=== PATIENT | male | born 1935 | race Caucasian/White ===

== ENCOUNTER 2016-12-09 12:23 | Emergency (ER) | payer OTHER ==
[2016-12-09 12:54] VITALS: BP 125/51
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
== END 2016-12-09 14:05 | disposition home or self-care (01) ==
LOC: KA.ED 12:23
DX: S00.83XA Contusion of other part of head, initial encounter (principal); I10 Essential (primary) hypertension; I25.810 Atherosclerosis of coronary artery bypass graft(s) without angina pectoris; K21.9 Gastro-esophageal reflux disease without esophagitis; Z79.899 Other long term (current) drug therapy; Z95.1 Presence of aortocoronary bypass graft; Z90.49 Acquired absence of other specified parts of digestive tract; V49.9XXA Car occupant (driver) (passenger) injured in unspecified traffic accident, initial encounter
CPT/HCPCS: 70450; 99284

== ENCOUNTER 2019-01-11 11:36 | Emergency (ER) | payer MEDICARE, OTHER ==
[2019-01-11] MEDS ORDERED: Sodium Chloride 0.9% 1,000 ML IV ONE ×2 (11:50→13:31)
[2019-01-11 12:23] LABS: ANION GAP 18.3 mmol/L (5-15)
--- NOTE | 2019-01-11 12:29 | EDM.PDOC ---
ED HPI GENERAL MEDICAL PROBLEM - General Chief Complaint: Gastrointestinal Problem Time Seen by Provider: 01/11/19 12:00 Source of Information: Reports: Patient, Family (daughter) History Limitations: Reports: No Limitations - History of Present Illness INITIAL COMMENTS - FREE TEXT/NARRATIVE: Patient brought via ambulance from [facility] living with diarrhea, weakness and dehydration. He and his daughter tell me that two days ago he started abruptly with severe diarrhea. He says 10-11 times that day with dark stools. Yesterday the diarrhea was only about 3 times and color was more normal brown but he had bad pain in low abdomen. Today he has had diarrhea twice so far, brown; the abdominal pain is gone. He denies vomiting and has been eating close to normal (just a little less) all through this. He doesn't drink much water but has been drinking gatorade with this. He is on coumadin for A Fib and valve replacement 3 years ago. He also had CABG 20+ years ago and had a stent in between. He also has stage 3 CKD. abdominal general Pain Score (Numeric/FACES): 4 - Related Data Allergies Allergy/AdvReac Type Severity Reaction Status Date / Time No Known Allergies Allergy Verified 01/11/19 12:05 Home Meds: Home Meds Carvedilol 6.25 mg PO BID 12/23/14 [History] Finasteride 5 mg PO DAILY 12/23/14 [History] Pramipexole [Mirapex] 0.5 tab PO BEDTIME 12/23/14 [History] Calcium Citrate/Vitamin D2 [Kilo-Citrate Plus Vitamin D Tab] 1 each PO BID [History] Clopidogrel [Plavix] 75 mg PO DAILY 12/09/16 [History] Furosemide 40 mg PO DAILY 12/09/16 [History] Losartan [Cozaar] 50 mg PO DAILY 12/09/16 [History] Melatonin 5 mg PO BEDTIME PRN 12/09/16 [History] Nitroglycerin [IJP: Nitroglycerin] 0.4 mg SL PRN 12/09/16 [History] Pantoprazole Sodium 40 mg PO DAILY 12/09/16 [History] dilTIAZem HCl [Diltiazem 24Hr Cd] 120 mg PO DAILY 12/09/16 [History] Acetaminophen [Tylenol] 650 mg PO Q6H PRN 01/11/19 [History] Docusate Sodium [Colace] 100 mg PO DAILY PRN 01/11/19 [History] Pramipexole [Mirapex] 0.25 mg PO 1200 01/11/19 [History] Tamsulosin [Tamsulosin 24 Hr] 0.4 mg PO BEDTIME 01/11/19 [History] Warfarin [Coumadin] 5 mg PO DAILY 01/11/19 [History] atorvaSTATin Calcium [Atorvastatin Calcium] 40 mg PO BEDTIME 01/11/19 [History] Past Medical History HEENT History: Reports: Head, Impaired Vision Cardiovascular History: Reports: Bypass, CAD, Heart Valve Replacement, Hypertension, Stents Respiratory History: Reports: Sleep Apnea Gastrointestinal History: Reports: Chronic Constipation, GERD - Past Surgical History Cardiovascular Surgical History: Reports: Carotid Stents, Coronary Artery Bypass , Valve Replacement Social & Family History - Family History Family Medical History: Noncontributory - Caffeine Use Caffeine Use: Reports: Coffee, Soda ED ROS GENERAL - Review of Systems Review Of Systems: See Below Constitutional: Reports: Weakness, Decreased Appetite (a little). Denies: Fever , Chills HEENT: Denies: Ear Pain, Throat Pain, Vision Change Respiratory: Denies: Shortness of Breath, Cough Cardiovascular: Denies: Chest Pain, Lightheadedness, Syncope GI/Abdominal: Reports: Diarrhea. Denies: Abdominal Pain, Bloody Stool, Constipation, Nausea, Vomiting : Reports: Frequency (usually is quite frequent due to his water pill but much reduced since diarrhea started). Denies: Dysuria, Flank Pain Musculoskeletal: Denies: Neck Pain, Shoulder Pain, Arm Pain, Back Pain, Hand Pain, Leg Pain Skin: Denies: Cyanosis, Jaundice, Mottled, Pallor, Diaphoresis Neurological: Denies: Confusion, Dizziness, Headache, Seizure, Syncope Psychiatric: Denies: Agitation, Anxiety, Confusion Hematologic/Lymphatic: Denies: Anemia ED EXAM, GI/ABD - Physical Exam Exam: See Below Exam Limited By: No Limitations General Appearance: Alert, WD/WN, No Apparent Distress Eyes: Bilateral: Normal Appearance, EOMI Ears: Normal External Exam, Hearing Grossly Normal Nose: Normal Inspection, No Blood Throat/Mouth: Normal Inspection, Normal Lips, Normal Voice, No Airway Compromise Head: Atraumatic, Normocephalic Neck: Normal Inspection, Supple, Non-Tender, Full Range of Motion Respiratory/Chest: No Respiratory Distress, Lungs Clear, Normal Breath Sounds, No Accessory Muscle Use Cardiovascular: Normal Peripheral Pulses, Regular Rate, Rhythm, No Murmur GI/Abdominal Exam: Soft, Non-Tender (was yesterday but good now), No Organomegaly, No Distention, No Abnormal Bruit, No Mass, Abnormal Bowel Sounds ( increased) Rectal (Males) Exam: Heme - Stool (from defecation) Back Exam: Normal Inspection, Full Range of Motion. No: CVA Tenderness (L), CVA Tenderness (R) Extremities: Normal Inspection, Normal Range of Motion, Pedal Edema (none present now but wearing TEDS) Neurological: Alert, Oriented, Normal Cognition, No Motor/Sensory Deficits Psychiatric: Normal Affect, Normal Mood Skin Exam: Warm, Dry, Intact, Normal Color, No Rash Course - Vital Signs Last Recorded V/S: Last Vital Signs Temp 97.5 F 01/11/19 11:51 Pulse 62 01/11/19 12:36 Resp 19 01/11/19 12:36 BP 128/43 L 01/11/19 12:36 Pulse Ox 97 01/11/19 12:36 - Orders/Labs/Meds Labs: Laboratory Tests 01/11/19 01/11/19 01/11/19 Range/Units 11:55 11:55 11:55 WBC 5.88 (5.00-10.00) 10^3/uL RBC 4.40 L (4.50-6.00) 10^6/uL Hgb 13.4 (13.0-17.0) g/dL Hct 39.0 L (40.0-52.0) % MCV 88.6 (82.0-92.0) fL MCH 30.5 (27.0-31.0) pg MCHC 34.4 (32.0-36.0) g/dL RDW 14.4 (11.5-14.5) % Plt Count 162 (150-400) 10^3/uL MPV 11.4 H (7.4-10.4) fL Immature Gran % (Auto) 0.2 (0.0-5.0) % Neut % (Auto) 70.7 H (50.0-70.0) % Lymph % (Auto) 14.1 L (20.0-40.0) % [place] % (Auto) 14.6 H (2.0-8.0) % Eos % (Auto) 0.2 L (1.0-3.0) % Baso % (Auto) 0.2 (0.0-1.0) % Immature Gran # (Auto) 0.01 (0.00-0.50) 10^3/uL Neut # (Auto) 4.16 (2.50-7.00) 10^3/uL Lymph # (Auto) 0.83 L (1.00-4.00) 10^3/uL [place] # (Auto) 0.86 H (0.10-0.80) 10^3/uL Eos # (Auto) 0.01 L (0.10-0.30) 10^3/uL Baso # (Auto) 0.01 (0.00-0.10) 10^3/uL PT 24.1 H (8.9-11.4) SEC INR 2.4 H (0.9-1.1) Sodium 139 (136-145) mmol/L Potassium 3.0 L (3.3-5.3) mmol/L Chloride 102 (98-115) mmol/L Carbon Dioxide 21.7 (21.0-32.0) mmol/L Anion Gap 18.3 H (5-15) mmol/L BUN 65 H* (6-25) mg/dL Creatinine 2.08 H (0.51-1.17) mg/dL Est Cr Clr Drug Dosing 31.62 mL/min Estimated GFR (MDRD) 31 mL/min Glucose 107 H (75 - 99) mg/dL Calcium 8.5 L (8.7-10.3) mg/dL Total Bilirubin 0.4 (0.2-1.0) mg/dL AST 32 (15-37) U/L ALT 28 (12-78) U/L Alkaline Phosphatase 71 (46-116) IU/L Total Protein 7.3 (6.4-8.2) g/dL Albumin 3.55 (3.00-4.80) g/dL Specimen Type Urine Color (YELLOW) Urine Appearance (CLEAR) Urine pH (5.0-9.0) Ur Specific [place] (1.005-1.030) Urine Protein (NEGATIVE) mg/dL Urine Glucose (UA) (NEGATIVE) mg/dL Urine Ketones (NEGATIVE) mg/dL Urine Occult Blood (NEGATIVE) Urine Nitrite (NEGATIVE) Urine Bilirubin (NEGATIVE) Urine Urobilinogen (0.2-1.0) E.U./dL Ur Leukocyte Esterase (NEGATIVE) Urine RBC (0-5) /HPF Urine WBC (0-5) /HPF Ur Epithelial Cells /LPF Urine Bacteria (NONE TO FEW) /HPF Hyaline Casts (NEGATIVE) /LPF 01/11/19 Range/Units 14:10 WBC (5.00-10.00) 10^3/uL RBC (4.50-6.00) 10^6/uL Hgb (13.0-17.0) g/dL Hct (40.0-52.0) % MCV (82.0-92.0) fL MCH (27.0-31.0) pg MCHC (32.0-36.0) g/dL RDW (11.5-14.5) % Plt Count (150-400) 10^3/uL MPV (7.4-10.4) fL Immature Gran % (Auto) (0.0-5.0) % Neut % (Auto) (50.0-70.0) % Lymph % (Auto) (20.0-40.0) % [place] % (Auto) (2.0-8.0) % Eos % (Auto) (1.0-3.0) % Baso % (Auto) (0.0-1.0) % Immature Gran # (Auto) (0.00-0.50) 10^3/uL Neut # (Auto) (2.50-7.00) 10^3/uL Lymph # (Auto) (1.00-4.00) 10^3/uL [place] # (Auto) (0.10-0.80) 10^3/uL Eos # (Auto) (0.10-0.30) 10^3/uL Baso # (Auto) (0.00-0.10) 10^3/uL PT (8.9-11.4) SEC INR (0.9-1.1) Sodium (136-145) mmol/L Potassium (3.3-5.3) mmol/L Chloride (98-115) mmol/L Carbon Dioxide (21.0-32.0) mmol/L Anion Gap (5-15) mmol/L BUN (6-25) mg/dL Creatinine (0.51-1.17) mg/dL Est Cr Clr Drug Dosing mL/min Estimated GFR (MDRD) mL/min Glucose (75 - 99) mg/dL Calcium (8.7-10.3) mg/dL Total Bilirubin (0.2-1.0) mg/dL AST (15-37) U/L ALT (12-78) U/L Alkaline Phosphatase (46-116) IU/L Total Protein (6.4-8.2) g/dL Albumin (3.00-4.80) g/dL Specimen Type Urincc Urine Color Yellow (YELLOW) Urine Appearance Clear (CLEAR) Urine pH 5.0 (5.0-9.0) Ur Specific [place] 1.015 (1.005-1.030) Urine Protein Negative (NEGATIVE) mg/dL Urine Glucose (UA) Negative (NEGATIVE) mg/dL Urine Ketones Negative (NEGATIVE) mg/dL Urine Occult Blood Negative (NEGATIVE) Urine Nitrite Negative (NEGATIVE) Urine Bilirubin Negative (NEGATIVE) Urine Urobilinogen 0.2 (0.2-1.0) E.U./dL Ur Leukocyte Esterase Negative (NEGATIVE) Urine RBC 0-5 (0-5) /HPF Urine WBC 0-5 (0-5) /HPF Ur Epithelial Cells Few /LPF Urine Bacteria Few (NONE TO FEW) /HPF Hyaline Casts Few H (NEGATIVE) /LPF Meds: Medications Discontinued Medications Generic Name Dose Route Start Last Admin Trade Name Gracie PRN Reason Stop Dose Admin Sodium Chloride 1,000 mls @ 999 mls/hr 01/11/19 11:50 01/11/19 12:18 Normal Saline IV 01/11/19 12:50 999 mls/hr .BOLUS ONE Administration Sodium Chloride 1,000 mls @ 999 mls/hr 01/11/19 13:31 01/11/19 13:39 Normal Saline IV 01/11/19 14:31 999 mls/hr .BOLUS ONE Administration - Re-Assessments/Exams Free Text/Narrative Re-Assessment/Exam: 01/11/19 14:58 Gave 2 liters of NS IV. Labs okay. Patient is feeling quite a bit better now. INR is 2.4 but pt says it was 3.5 two weeks ago and they had him decrease warfarin to 1/2 tab 3 days instead of 2 days/week. He will call them today with the INR. Discussed findings and recommendations with him and he is discharged back to assisted living in stable condition. Departure - Departure Time of Disposition: 14:56 Disposition: Home, Self-Care 01 Condition: Good Clinical Impression: Hypovolemia dehydration Diarrhea Qualifiers: Diarrhea type: unspecified type Qualified Code(s): R19.7 - Diarrhea, unspecified - Discharge Information Instructions: Dehydration, Adult, [id number] Referrals: Radha Humphrey MD [Primary Care Provider] - Forms: ED Department Discharge Additional Instructions: 1. Drink 8 cups of water daily. 2. Follow up with your PCP if this worsens, or fails to completely resolve in 2- 3 days. 3. Return to ER as needed.
[2019-01-11 12:43] VITALS: BP 128/43
== END 2019-01-11 16:25 | disposition home or self-care (01) ==
LOC: KA.ED 11:36
DX: E86.1 Hypovolemia (principal); E86.0 Dehydration; I10 Essential (primary) hypertension; K21.9 Gastro-esophageal reflux disease without esophagitis; Z79.899 Other long term (current) drug therapy
CPT/HCPCS: 80053; 81001; 82272; 85025; 85610; 96360; 96361; 99284; 99284-25; J7030

== ENCOUNTER 2019-08-31 16:57 | Inpatient (IN) | payer MEDICARE, OTHER ==
[2019-08-31] MEDS ORDERED: Sodium Chloride 0.9% 10 ML Syringe FLUSH PRN (17:08)
--- NOTE | 2019-08-31 17:35 | EDM.PDOC ---
ED HPI GENERAL MEDICAL PROBLEM - General Chief Complaint: Trauma Stated Complaint: FELL ON ICE..HIT BY A BULL Time Seen by Provider: 08/31/19 16:57 Source of Information: Reports: Patient, Family History Limitations: Reports: No Limitations - History of Present Illness INITIAL COMMENTS - FREE TEXT/NARRATIVE: Abhinav, 84-year-old male, got into a pen were 2 bulls were fighting with each other, in an attempt to separate them. 1 bull knocked him down, causing him to hit hard ground, ice which likely initiated the laceration and abrasions to his head and face. The bull then proceeded to head and roll him, at least twice, then backing away. This allowed Abhinav to stand up and ambulate from the pen, to the barn where his son was clipping bulls preparing for the sale. He denies loss of consciousness, acknowledges bleeding which is worsened secondary of his chronic anticoagulation therapy. He complains of head and facial pain, bleeding, right hip pain, and back pain low thoracic/lumbar, radiating to the right side. He denies any complaints of weakness, numbness or tingling to his lower extremities, denies any issues with upper extremities other than mild discomfort where he shows some bruising and abrasions. Onset: Today, Sudden Left Frontal Face/Facial Pain Score (Numeric/FACES): 10 - Related Data Allergies Allergy/AdvReac Type Severity Reaction Status Date / Time No Known Allergies Allergy Verified 08/31/19 18:54 Home Meds: Home Meds Finasteride 5 mg PO DAILY 12/23/14 [History] Pramipexole [Mirapex] 0.5 tab PO BEDTIME 12/23/14 [History] carvediloL [Carvedilol] 6.25 mg PO BID 12/23/14 [History] Calcium Citrate/Vitamin D2 [Kilo-Citrate Plus Vitamin D Tab] 1 each PO BID [History] Clopidogrel [Plavix] 75 mg PO DAILY 12/09/16 [History] Furosemide 40 mg PO DAILY 12/09/16 [History] Losartan [Cozaar] 50 mg PO DAILY 12/09/16 [History] Melatonin 5 mg PO BEDTIME PRN 12/09/16 [History] Nitroglycerin [IJP: Nitroglycerin] 0.4 mg SL TID PRN 12/09/16 [History] Pantoprazole Sodium 40 mg PO DAILY 12/09/16 [History] dilTIAZem HCl [Diltiazem 24Hr Cd] 120 mg PO DAILY 12/09/16 [History] Acetaminophen [Tylenol] 650 mg PO Q6H PRN 01/11/19 [History] Docusate Sodium [Colace] 100 mg PO DAILY PRN 01/11/19 [History] Pramipexole [Mirapex] 0.25 mg PO 1200 01/11/19 [History] Tamsulosin [Tamsulosin 24 Hr] 0.8 mg PO BEDTIME 01/11/19 [History] Warfarin [Coumadin] 5 mg PO DAILY 01/11/19 [History] atorvaSTATin Calcium [Atorvastatin Calcium] 40 mg PO BEDTIME 01/11/19 [History] Amoxicillin 2,000 mg PO ASDIRECTED PRN 08/31/19 [History] Ferrous Sulfate 5 ml PO DAILY 08/31/19 [History] Mirtazapine [Remeron] 15 mg PO BEDTIME 08/31/19 [History] Past Medical History HEENT History: Reports: Head, Impaired Vision Cardiovascular History: Reports: Bypass, CAD, Heart Valve Replacement, Hypertension, Stents Respiratory History: Reports: Sleep Apnea Gastrointestinal History: Reports: Chronic Constipation, GERD Genitourinary History: Reports: Prostate Disorder, Other (See Below) Other Genitourinary History: chronic kidney disease Hematologic History: Reports: Iron Deficiency - Past Surgical History Cardiovascular Surgical History: Reports: Carotid Stents, Coronary Artery Bypass , Valve Replacement Social & Family History - Family History Family Medical History: Noncontributory - Caffeine Use Caffeine Use: Reports: Coffee, Soda ED ROS GENERAL - Review of Systems Review Of Systems: Comprehensive ROS is negative, except as noted in HPI. ED EXAM, GENERAL - Physical Exam Exam: See Below Free Text/Narrative:: Alert, oriented, mild distress. Presents ambulatory through the front door of the hospital, holding pressure with a towel to the left side of his face. He remains coherent and is able to give us the story of how he was knocked down by one of the 2 bulls were sparring in the pen. He was then pushed at least twice in the back, then able to stand up and climb out of the pen. HEENT shows swelling, active bleeding that is somewhat controlled with direct pressure, and lacerations and abrasions that have been documented after measurement on the [facility] trauma system recorder. No other tenderness to the head or scalp as noted. There is minimal discomfort if any to the neck or spinal processes. Thorax is somewhat diminished but clear. Old healed scar/incision line from open chest procedure. Cardiac is regular with a grade 1 systolic murmur. Abdomen is soft bowel sounds present no megaly appreciated. No flank pain, tenderness to the lower thoracic region over the spinal process at the thorax Lumbar junction, dominant thoracic discomfort. There is no noted abrasions or deformity noted when visualizing posterior neck thorax or lumbar region. Rectal exam sphincter tone intact there is no stool in the vault. Tenderness to the right hip with no crepitus, and/or deformity noted. Extremities are intact with motion with a small abrasion to the left hand. Please refer to [facility] documentation, for detail of measurements and findings. ED GENERAL MEDICAL PROCEDURES - Laceration/Wound Repair Left Anterior Lateral Face Lac/wound length in cm: 5 (See trauma report for recorded measurements) Appearance: Moderately Contaminated Distal NVT: Neuro & Vascular Intact Anesthetic Type: Local Local Anesthesia - Lidocaine (Xylocaine): 1% with EPI Local Anesthetic Volume: 4cc Skin Prep: Saline Exploration/Debridement/Repair: Wound Explored, Moderate Debridement Closed with: Sutures Suture Size: 5-0 # of Sutures: 20 Suture Type: Prolene, Interrupted Sterile Dressing Applied: Nurse Tetanus Status Addressed: Yes Complication Description: Please see details on the [facility] trauma record for the measurements of this gaping complex laceration/avulsion/tear. 55 minutes was spent from the time of first suture until conclusion in the alignment and approximation of this complex wound. Abhinav was offered the opportunity for specialist to which she declined stating "I trust you'll do a good job". EKG INTERPRETATION EKG Date: 08/31/19 Time: 18:00 Rhythm: NSR Rate (Beats/Min): 66 [place]: Normal P-Wave: Present QRS: Normal ST-T: Normal QT: Prolonged Comparison: NA - No Prior EKG Course - Vital Signs Last Recorded V/S: Last Vital Signs Temp 37.4 C 08/31/19 19:14 Pulse 76 08/31/19 21:00 Resp 20 08/31/19 21:00 BP 138/66 08/31/19 21:00 Pulse Ox 94 L 08/31/19 21:00 - Orders/Labs/Meds Orders: Active Orders 24 hr Category Date Time Status EKG Documentation Completion [RC] ASDIRECTED Care 08/31/19 17:10 Active Peripheral IV Care [RC] . DIRECTED Care 08/31/19 17:08 Active Vaccines to be Administered [RC] PER UNIT ROUTINE Care 08/31/19 18:04 Active Head wo Cont [CT] Stat Exams 08/31/19 17:07 Ordered Lactated Ringers [Ringers, Lactated] 1,000 ml Med 08/31/19 19:00 Active IV ASDIRECTED Sodium Chloride 0.9% [Saline Flush] Med 08/31/19 17:08 Active 10 ml FLUSH Q8HR PRN Peripheral IV Insertion Adult [OM.PC] Routine Oth 08/31/19 17:08 Ordered EKG 12 Lead [EK] Routine Ther 08/31/19 17:09 Ordered Medication Orders Lactated Ringer's (Ringers, Lactated) 1,000 mls @ 50 mls/hr IV ASDIRECTED HERBERT Last Admin: 08/31/19 19:03 Dose: 50 mls/hr Sodium Chloride (Saline Flush) 10 ml FLUSH Q8HR PRN PRN Reason: keep vein open Labs: Laboratory Tests 08/31/19 08/31/19 08/31/19 Range/Units 17:20 17:20 17:20 WBC 7.83 (5.00-10.00) 10^3/uL RBC 3.73 L (4.50-6.00) 10^6/uL Hgb 11.4 L D (13.0-17.0) g/dL Hct 35.1 L (40.0-52.0) % MCV 94.1 H D (82.0-92.0) fL MCH 30.6 (27.0-31.0) pg MCHC 32.5 (32.0-36.0) g/dL RDW 14.2 (11.5-14.5) % Plt Count 153 (150-400) 10^3/uL MPV 11.2 H (7.4-10.4) fL Immature Gran % (Auto) 1.8 (0.0-5.0) % Neut % (Auto) 81.8 H (50.0-70.0) % Lymph % (Auto) 8.9 L (20.0-40.0) % [place] % (Auto) 6.4 (2.0-8.0) % Eos % (Auto) 1.1 (1.0-3.0) % Baso % (Auto) 0.0 (0.0-1.0) % Immature Gran # (Auto) 0.14 (0.00-0.50) 10^3/uL Neut # (Auto) 6.40 (2.50-7.00) 10^3/uL Lymph # (Auto) 0.70 L (1.00-4.00) 10^3/uL [place] # (Auto) 0.50 (0.10-0.80) 10^3/uL Eos # (Auto) 0.09 L (0.10-0.30) 10^3/uL Baso # (Auto) 0.00 (0.00-0.10) 10^3/uL PT 23.9 H (8.9-11.4) SEC INR 2.4 H (0.9-1.1) APTT 31.3 (23.1-31.3) SEC Sodium 144 (136-145) mmol/L Potassium 4.2 (3.3-5.3) mmol/L Chloride 106 (98-115) mmol/L Carbon Dioxide 27.0 (21.0-32.0) mmol/L Anion Gap 15.2 H (5-15) mmol/L BUN 31 H D (6-25) mg/dL Creatinine 1.36 H (0.51-1.17) mg/dL Est Cr Clr Drug Dosing 46.51 mL/min Estimated GFR (MDRD) 50 mL/min Glucose 118 H (75 - 99) mg/dL Calcium 8.5 L (8.7-10.3) mg/dL Total Bilirubin 0.5 (0.2-1.0) mg/dL AST 29 (15-37) U/L ALT 28 (12-78) U/L Alkaline Phosphatase 83 (46-116) IU/L Total Protein 7.0 (6.4-8.2) g/dL Albumin 3.64 (3.00-4.80) g/dL Specimen Type Urine Color (YELLOW) Urine Appearance (CLEAR) Urine pH (5.0-9.0) Ur Specific [place] (1.005-1.030) Urine Protein (NEGATIVE) mg/dL Urine Glucose (UA) (NEGATIVE) mg/dL Urine Ketones (NEGATIVE) mg/dL Urine Occult Blood (NEGATIVE) Urine Nitrite (NEGATIVE) Urine Bilirubin (NEGATIVE) Urine Urobilinogen (0.2-1.0) E.U./dL Ur Leukocyte Esterase (NEGATIVE) Urine RBC (0-5) /HPF Urine WBC (0-5) /HPF Ur Epithelial Cells /LPF Urine Bacteria (NONE TO FEW) /HPF Hyaline Casts (NEGATIVE) /LPF Urine Mucus (NEGATIVE) /LPF 08/31/19 Range/Units 18:05 WBC (5.00-10.00) 10^3/uL RBC (4.50-6.00) 10^6/uL Hgb (13.0-17.0) g/dL Hct (40.0-52.0) % MCV (82.0-92.0) fL MCH (27.0-31.0) pg MCHC (32.0-36.0) g/dL RDW (11.5-14.5) % Plt Count (150-400) 10^3/uL MPV (7.4-10.4) fL Immature Gran % (Auto) (0.0-5.0) % Neut % (Auto) (50.0-70.0) % Lymph % (Auto) (20.0-40.0) % [place] % (Auto) (2.0-8.0) % Eos % (Auto) (1.0-3.0) % Baso % (Auto) (0.0-1.0) % Immature Gran # (Auto) (0.00-0.50) 10^3/uL Neut # (Auto) (2.50-7.00) 10^3/uL Lymph # (Auto) (1.00-4.00) 10^3/uL [place] # (Auto) (0.10-0.80) 10^3/uL Eos # (Auto) (0.10-0.30) 10^3/uL Baso # (Auto) (0.00-0.10) 10^3/uL PT (8.9-11.4) SEC INR (0.9-1.1) APTT (23.1-31.3) SEC Sodium (136-145) mmol/L Potassium (3.3-5.3) mmol/L Chloride (98-115) mmol/L Carbon Dioxide (21.0-32.0) mmol/L Anion Gap (5-15) mmol/L BUN (6-25) mg/dL Creatinine (0.51-1.17) mg/dL Est Cr Clr Drug Dosing mL/min Estimated GFR (MDRD) mL/min Glucose (75 - 99) mg/dL Calcium (8.7-10.3) mg/dL Total Bilirubin (0.2-1.0) mg/dL AST (15-37) U/L ALT (12-78) U/L Alkaline Phosphatase (46-116) IU/L Total Protein (6.4-8.2) g/dL Albumin (3.00-4.80) g/dL Specimen Type . Urine Color Yellow (YELLOW) Urine Appearance Clear (CLEAR) Urine pH 5.5 (5.0-9.0) Ur Specific [place] 1.020 (1.005-1.030) Urine Protein Trace H (NEGATIVE) mg/dL Urine Glucose (UA) Negative (NEGATIVE) mg/dL Urine Ketones Negative (NEGATIVE) mg/dL Urine Occult Blood Negative (NEGATIVE) Urine Nitrite Negative (NEGATIVE) Urine Bilirubin Negative (NEGATIVE) Urine Urobilinogen 0.2 (0.2-1.0) E.U./dL Ur Leukocyte Esterase Negative (NEGATIVE) Urine RBC 0-5 (0-5) /HPF Urine WBC 0-5 (0-5) /HPF Ur Epithelial Cells Occasional /LPF Urine Bacteria Occasional (NONE TO FEW) /HPF Hyaline Casts Many H (NEGATIVE) /LPF Urine Mucus Occasional H (NEGATIVE) /LPF Meds: Medications Generic Name Dose Route Start Last Admin Trade Name Freq PRN Reason Stop Dose Admin Lactated Ringer's 1,000 mls @ 50 mls/hr 08/31/19 19:00 08/31/19 19:03 Ringers, Lactated IV 50 mls/hr ASDIRECTED HERBRET Administration Sodium Chloride 10 ml 08/31/19 17:08 Saline Flush FLUSH Q8HR PRN keep vein open Discontinued Medications Generic Name Dose Route Start Last Admin Trade Name Freq PRN Reason Stop Dose Admin Diphtheria/Tetanus/Acell Pertussis 0.5 ml 08/31/19 18:04 08/31/19 18:35 Adacel IM 08/31/19 18:05 0.5 ml .ONCE ONE Administration Hydromorphone HCl 1 mg 08/31/19 18:54 08/31/19 19:05 Dilaudid IVPUSH 08/31/19 18:55 1 mg ONETIME ONE Administration Lidocaine/Epinephrine Confirm 08/31/19 19:36 Xylocaine 1% With Epinephrine 1:100,000 Administered 08/31/19 19:37 Dose 20 ml .[address] .[facility] ONE - Re-Assessments/Exams Free Text/Narrative Re-Assessment/Exam: 08/31/19 18:56 Chest x-ray pelvic x-ray confirmed no fracture and/or dislocations. Mild CHF congestion pattern. Pain at this time is increased with stiffness as he is been maintained on the cart supine cervical collar. We'll implement a milligram of Dilaudid IV and cautiously hang lactated Ringer' s with his congestive heart failure history and pattern on chest x-ray. Free Text/Narrative Re-Assessment/Exam: 08/31/19 22:23 I advised his [id number] who was in the waiting room during the suturing that completed the process and it approximated fairly well. Significant stretching and tautness of the skin secondary of swelling and the shearing force trauma that caused this. He will be admitted to the floor shortly and considerations for discharge will be given tomorrow pending his stability and pain management. His admitted to the [facility] service with Mr. Enrique Barrett, attending. Departure - Departure Time of Disposition: 21:11 Disposition: Admitted As Inpatient 67 Condition: Fair Clinical Impression: Abrasions of multiple sites, Anticoagulated with warfarin, Ribs, multiple fractures, Forehead laceration, Facial laceration, Contusion of face, Periorbital swelling, Thoracic back pain, Thoracolumbar back pain - Discharge Information *PRESCRIPTION DRUG MONITORING PROGRAM REVIEWED*: Not Applicable *COPY OF PRESCRIPTION DRUG MONITORING REPORT IN PATIENT MYRA: Not Applicable Sepsis Event Note - Focused Exam Vital Signs: Vital Signs Temp Temp Pulse Resp BP Pulse Ox Pulse Ox 08/31/19 21:00 76 20 138/66 94 L 08/31/19 20:30 20 144/48 H 91 L 08/31/19 20:15 20 142/58 H 91 L 08/31/19 20:00 20 138/66 90 L 08/31/19 19:45 20 153/73 H 90 L 08/31/19 19:30 88 22 H 145/69 H 94 L 08/31/19 19:18 71 18 145/30 H 100 08/31/19 19:14 37.4 C 69 18 164/70 H 99 08/31/19 18:49 57 L 18 159/38 H 98 08/31/19 18:25 36.6 C 62 18 162/44 H 88 L 08/31/19 18:20 95 08/31/19 17:45 36.8 C 80 24 H 163/47 H 95 Date Exam was Performed: 08/31/19 Time Exam was Performed: 22:17 ED Communication - Discussed Case With (1) Discussed Case With (1): Admitting Provider Person/s Notified (1): Enrique Barrett Date: 08/31/19 Time Called: 20:00 - Problem List & Annotations (1) Facial laceration SNOMED Code(s): 517548569 Code(s): S01.81XA - LACERATION W/O FOREIGN BODY OF OTH PART OF HEAD, INIT ENCNTR Status: Acute Current Visit: Yes Qualifiers: Encounter type: initial encounter Qualified Code(s): S01.81XA - Laceration without foreign body of other part of head, initial encounter (2) Contusion of face SNOMED Code(s): 214419222 Code(s): S00.83XA - CONTUSION OF OTHER PART OF HEAD, INITIAL ENCOUNTER Status: Acute Priority: High Current Visit: Yes Qualifiers: Encounter type: initial encounter Qualified Code(s): S00.83XA - Contusion of other part of head, initial encounter (3) Periorbital swelling SNOMED Code(s): 981086509 Code(s): H57.89 - OTHER SPECIFIED DISORDERS OF EYE AND ADNEXA Status: Acute Priority: High Current Visit: Yes (4) Trauma SNOMED Code(s): 306199694 Code(s): T14.90XA - INJURY, UNSPECIFIED, INITIAL ENCOUNTER Status: Acute Priority: High Current Visit: Yes (5) Hip pain, right SNOMED Code(s): 36275658 Code(s): M25.551 - PAIN IN RIGHT HIP Status: Acute Priority: High Current Visit: Yes (6) Thoracic back pain SNOMED Code(s): 493249228 Code(s): M54.6 - PAIN IN THORACIC SPINE Status: Acute Priority: High Current Visit: Yes Qualifiers: Chronicity: acute Back pain laterality: right Qualified Code(s): M54.6 - Pain in thoracic spine (7) Thoracolumbar back pain SNOMED Code(s): 242938157 Code(s): M54.5 - LOW BACK PAIN; M54.6 - PAIN IN THORACIC SPINE Status: Acute Priority: High Current Visit: Yes (8) Chronic renal insufficiency, stage I SNOMED Code(s): 218303988 Code(s): N18.1 - CHRONIC KIDNEY DISEASE, STAGE 1 Status: Chronic Priority : Medium Current Visit: Yes (9) Anticoagulated with warfarin SNOMED Code(s): 44157403 Code(s): Z79.01 - MANAGER PRIVACY (CURRENT) USE OF ANTICOAGULANTS Status: Chronic Priority: High Current Visit: Yes (10) Ribs, multiple fractures SNOMED Code(s): 3926640 Code(s): S22.49XA - MULTIPLE FRACTURES OF RIBS, UNSP SIDE, INIT FOR CLOS FX Status: Acute Priority: High Current Visit: Yes Qualifiers: Encounter type: initial encounter Fracture type: closed Laterality: right Qualified Code(s): S22.41XA - Multiple fractures of ribs, right side, initial encounter for closed fracture (11) Abrasions of multiple sites SNOMED Code(s): 012546272, 280130702 Code(s): T07.XXXA - UNSPECIFIED MULTIPLE INJURIES, INITIAL ENCOUNTER Status : Acute Priority: High Current Visit: Yes - Problem List Review Problem List Initiated/Reviewed/Updated: Yes - My Orders Last 24 Hours: My Active Orders 08/31/19 17:07 Head wo Cont [CT] Stat 08/31/19 17:08 Peripheral IV Care [RC] . DIRECTED Sodium Chloride 0.9% [Saline Flush] 10 ml FLUSH Q8HR PRN Peripheral IV Insertion Adult [OM.PC] Routine 08/31/19 17:09 EKG 12 Lead [EK] Routine 08/31/19 17:10 EKG Documentation Completion [RC] ASDIRECTED 01/04/20 18:04 Vaccines to be Administered [RC] PER UNIT ROUTINE 08/31/19 19:00 Lactated Ringers [Ringers, Lactated] 1,000 ml IV ASDIRECTED - Assessment/Plan Last 24 Hours: My Active Orders 08/31/19 17:07 Head wo Cont [CT] Stat 08/31/19 17:08 Peripheral IV Care [RC] . DIRECTED Sodium Chloride 0.9% [Saline Flush] 10 ml FLUSH Q8HR PRN Peripheral IV Insertion Adult [OM.PC] Routine 08/31/19 17:09 EKG 12 Lead [EK] Routine 08/31/19 17:10 EKG Documentation Completion [RC] ASDIRECTED 08/31/19 18:04 Vaccines to be Administered [RC] PER UNIT ROUTINE 08/31/19 19:00 Lactated Ringers [Ringers, Lactated] 1,000 ml IV ASDIRECTED Plan: Will be admitted to the [facility], Enrique Barrett, admitting and attending. Discussed complexity of his wound as well as rib fractures and the findings on CT of sinusitis as well as a somewhat contaminated wound was irrigated with copious fluid as well as manual debridement per sponge and pick up attendant.
[2019-08-31 17:55] LABS: ANION GAP 15.2 mmol/L (5-15)
[2019-08-31] MEDS ORDERED: Diphtheria,Pertussis(Acell),Tetanus Vaccine 0.5 ML SDV IM ONE (18:04)
--- NOTE | 2019-08-31 18:10 | CR ---
[id number] RAD/RAD Chest PA or AP 1V EXAM: RAD Chest PA or AP 1V INDICATION: TRAUMA. COMPARISON: None. DISCUSSION: Cardiomegaly and central vascular congestion. No infiltrate, effusion, pneumothorax, or edema. No radiographically evident rib fracture or lesion. IMPRESSION: No acute findings. Adolfo Ferguson MD 08/31/19 [id number] Thank you for allowing us to participate in the care of your patient.
--- NOTE | 2019-08-31 18:12 | CR ---
[id number] RAD/RAD Pelvis 1-2V Exam: RAD Pelvis 1-2V Indication:TRAUMA. Comparison: No prior imaging for comparison. Discussion: Single view of the pelvis is negative for fracture or dislocation. Impression: No acute findings. Adolfo Ferguson MD 08/31/19 2440 Thank you for allowing us to participate in the care of your patient.
[2019-08-31] MEDS ORDERED: HYDROmorphone 1 MG/ML Syringe IVPUSH ONE (18:54)
[2019-08-31] MEDS ORDERED: Lactated Ringers 1,000 ML IV SCH (19:00)
--- NOTE | 2019-08-31 19:09 | CT ---
[id number] CT/CT Head WO IV; [id number] CT/CT Facial Bones WO IV Exam: CT Head WO IV, CT Facial Bones WO IV Indication:TRAUMA Comparison: November 2016. Discussion: Soft tissue contusion over the left lateral aspect of the left orbital region. 6 mm linear radiopaque foreign body in the subcutaneous soft tissues lateral to the left orbit (series 2 image 20). Finding is nonspecific. No underlying acute calvarial or facial bone fracture. Mild mucosal thickening in the paranasal sinuses. Findings are consistent with sinusitis. No acute intracranial hemorrhage or extra-axial fluid collection. No hydrocephalus. 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 Impression: Left orbital soft tissue contusion. No underlying facial bone or calvarial fracture. No acute intracranial hemorrhage. Adolfo Ferguson MD 08/31/19 4876 Thank you for allowing us to participate in the care of your patient.
--- NOTE | 2019-08-31 19:10 | CT ---
[id number] CT/CT Cervical Spine WO IV EXAM: CT Cervical Spine WO IV INDICATION: TRAUMA COMPARISON: None. DISCUSSION: No fracture or compression deformity. Vertebral bodies remain in normal alignment. Scattered changes of spondylosis throughout the cervical spine. No prevertebral soft tissue edema. Lung apices are clear. IMPRESSION: No acute findings in the cervical spine. Adolfo Ferguson MD 08/31/19 4629 Thank you for allowing us to participate in the care of your patient.
--- NOTE | 2019-08-31 19:15 | CT ---
[id number] CT/CT Thoracic Spine WO IV Exam: CT Thoracic Spine WO IV Indication:TRAUMA Comparison: No prior imaging for comparison. Discussion: Findings are within limitation of diffusely advanced bone demineralization, which can obscure subtle nondisplaced fracture. Spondylosis and kyphosis throughout the thoracic spine. Bridging osteophytes at nearly every level. Acute fracture of the right posterior 10th-12th ribs near the costovertebral junctions (series 2 image 102, 118, and 140). Impression: Acute nondisplaced fracture of the posterior right 10th-12th ribs to the costovertebral junctions. No evidence of a thoracic spine fracture. Adolfo Ferguson MD 08/31/19 3960 Thank you for allowing us to participate in the care of your patient.
[2019-08-31] MEDS ORDERED: Lidocaine 1% with EPINEPHrine 1:100,000 20 ML MDV ONE (19:36)
[2019-08-31] MEDS ORDERED: Docusate Sodium 100 MG Cap PO PRN (22:22)
[2019-08-31] MEDS ORDERED: Nitroglycerin 0.4 MG Tab.SL SL PRN (22:22)
[2019-08-31] MEDS ORDERED: Non-Formulary Medication 1 Each (Melatonin [Melatonin] 5 MG) PO PRN (22:22)
[2019-08-31] MEDS ORDERED: Sodium Chloride 0.9% 1,000 ML IV SCH (22:30)
[2019-08-31] MEDS: oxyCODONE 5 MG Tab PO PRN (23:48)
[2019-08-31] MEDS: Amoxicillin/Clavulanate K 875-125 MG Tab PO SCH (23:49)
[2019-08-31] MEDS: Acetaminophen 325 MG Tab PO SCH (23:49)
[2019-08-31] MEDS: atorvaSTATin 40 MG Tab PO SCH (23:50)
[2019-08-31] MEDS: Mirtazapine 15 MG Tab PO SCH (23:50)
[2019-08-31] MEDS ORDERED: Tamsulosin 0.4 MG Cap.ER ONE (23:52)
[2019-08-31] MEDS: Tamsulosin 0.4 MG Cap.ER PO SCH (23:53)
[2019-09-01] MEDS: Acetaminophen 325 MG Tab PO SCH ×4 (05:40→22:19)
[2019-09-01] MEDS: oxyCODONE 5 MG Tab PO PRN (05:50)
[2019-09-01 08:14] LABS: ANION GAP 12.7 mmol/L (5-15)
[2019-09-01] MEDS: Pantoprazole 40 MG Tab.CR PO SCH (08:52)
[2019-09-01] MEDS: Carvedilol 6.25 MG Tab PO SCH ×2 (08:52→20:57)
[2019-09-01] MEDS: Clopidogrel 75 MG Tab PO SCH (08:52)
[2019-09-01] MEDS: Calcium Citrate/Vitamin D3 315 MG-250 Unit Tab PO SCH ×2 (08:52→20:54)
[2019-09-01] MEDS: Finasteride 5 MG Tab PO SCH (08:52)
[2019-09-01] MEDS: Furosemide 40 MG Tab PO SCH (08:52)
[2019-09-01] MEDS: Diltiazem 120 MG Cap.CD PO SCH (08:52)
[2019-09-01] MEDS: Losartan 50 MG Tab PO SCH (08:52)
[2019-09-01] MEDS ORDERED: Calcium Carbonate 500 MG Tab.Chew PO ONE (09:59)
[2019-09-01] MEDS ORDERED: Lidocaine 5% 700 MG Patch TOP PRN (10:16)
[2019-09-01] MEDS: Mupirocin Oint 22 GM Tube TOP SCH ×2 (10:30→20:53)
[2019-09-01] MEDS: Amoxicillin/Clavulanate K 875-125 MG Tab PO SCH ×2 (11:07→22:19)
[2019-09-01] MEDS: Ferrous Sulfate Liq 300 MG/5 ML Cup PO SCH (11:08)
--- NOTE | 2019-09-01 12:47 | HP ---
HISTORY OF PRESENT ILLNESS: This is an 84-year-old gentleman who lives in an assisted living center in [place]. 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 He states he went out to the barn to separate some bulls. The bulls were fighting, so he went into the puri to separate them. He states that he hit 1 with a big stick and usually it runs off, but the bull turned on him and knocked him down to the ground and pushed him around on the ground for a while. He was brought to the emergency room by his daughter. The patient had suffered a laceration to the left side of his face. He also ended up having a CT scan which showed 3 nondisplaced fractured ribs to his posterior right costovertebral junction. Facial lacerations were sutured in the emergency room. The patient was having quite a bit of pain. He was admitted at that time. Now, today, the patient states the pain is better. His left eye is swollen shut. He cannot see out of it because it is swollen shut. He says he is still having some pain in his back, but he can stand up. He did eat breakfast this morning. His face continues to have some bleeding through multiple lacerations that are small. The patient is on blood thinners of Plavix and Coumadin. The patient denies any abdominal pain, any chest pain, or shortness of breath. The patient does say it hurts to take a deep breath. He is on 2 L nasal cannula oxygen to keep his sats greater than 90%. PAST MEDICAL HISTORY: The patient has a past medical history of coronary artery disease, atrial fibrillation, BPH, restless legs syndrome, gastroesophageal reflux disease, sleep disorder, hypertension, iron deficiency anemia, hypocalcemia, hyperlipidemia. MEDICATIONS: He takes calcium citrate with vitamin D 1 tablet daily. Coumadin 5 mg daily, he is managed [facility]. Ferrous sulfate daily, Remeron 15 mg at bedtime, diltiazem 24 Hr CD 120 mg daily, Coreg 6.25 mg twice a day, atorvastatin 40 mg daily, Flomax 0.8 mg daily. Mirapex, he takes 0.25 mg at noon and 0.5 mg at bedtime. He takes Protonix 40 mg daily in the morning. He has some Nitrostat tablets that he can take as needed. Melatonin at bedtime as needed for sleep. Losartan 50 mg daily. Lasix 40 mg daily. Proscar 5 mg daily. Colace 100 mg daily as needed. Plavix 75 mg daily. Tylenol as needed. ALLERGIES: He has no known drug allergies. SOCIAL/PERSONAL HISTORY: The patient is retired. Denies any tobacco use. He does drink alcohol occasionally. He lives at assisted living in [place], [place]. REVIEW OF SYSTEMS: The patient does complain of back pain on his right back along his spine. He also complains of left facial pain. He denies any abdominal pain or pain to his legs or pelvis. CONSTITUTIONAL: No weight loss. No fever. No chills. No night sweats. Appetite is good. No fatigue. EYES: No recent visual changes. ENT: No sinus congestion or hoarseness. CARDIOVASCULAR: No chest pain or palpitations. RESPIRATORY: No cough. No shortness of breath. GI: No vomiting, diarrhea or melena. : No dysuria or hematuria. MUSCULOSKELETAL: No new bone pain or joint swelling. INTEGUMENTARY: No rash or pruritus. NEUROLOGIC/PSYCHIATRIC: No recent headache or focal weakness. No depressive symptoms. ENDOCRINE: No heat or cold intolerances or polydipsia. HEMATOLOGIC/LYMPHATIC: No excessive bruising or lymph node swelling. ALLERGIC/IMMUNOLOGIC: No hives or recurrent infections. PHYSICAL EXAMINATION: GENERAL: This is an elderly white male with quite a bit of bruising and a laceration to left side of his face, in no acute distress. VITAL SIGNS: Stable. Temperature is 98.4, pulse is 66, blood pressure is 132/36, respiratory rate is 20, oxygen saturation 99% on 2 L nasal cannula. HEENT: Head is normocephalic. Eyes: Both eyes have pupils that are round, equal, reactive to light. Bilateral tympanic membranes are intact. No pharyngeal erythema. NECK: Supple. Trachea is midline. No JVD. LUNGS: Sounds are clear to upper lobes, slightly diminished at the right lower base. CARDIAC: Irregularly irregular consistent with atrial fibrillation. No murmurs identified. ABDOMEN: Soft, nontender, nondistended. Bowel sounds present x4. EXTREMITIES: Full range of motion. No joint effusion noted. NEUROLOGIC: Grossly intact. DIAGNOSTIC: The patient had CT scan done of his pelvis, which shows no acute findings per Radiology. He had a facial sinus CT scan which showed left orbital soft tissue contusion. No underlying facial bone or calvarial fracture. No acute intracranial hemorrhage. Findings are consistent with sinusitis. He has mild mucosal thickening of the paranasal sinuses. Chest x-ray obtained in the ER shows no acute findings per Radiology. Cervical spine CT, no acute findings in cervical spine per Radiology. Lastly, his thoracic spine CT shows acute nondisplaced fracture of the posterior right 10th through 12th ribs to the costovertebral junction. No evidence of thoracic spine fracture. LABORATORY DATA: The patient's lab work that was obtained in the emergency room. CBC shows white count normal range at 7.8, hemoglobin 11.4. INR was 2.4. BUN was 31, creatinine 1.36. Urinalysis showed many casts, occasional bacteria. The patient's repeat lab work that was obtained this morning, which is 09/01/2019. CBC shows a white count normal range at 9.3, hemoglobin is down to 8.9. Absolute neutrophil percentage is elevated at 85.3. INR today is 2.0. Chemistry panel shows BUN elevated at 36, creatinine 1.4, GFR is 48, calcium is low at 7.9, albumin 3.00. IMPRESSION/PLAN: 1. Trauma to left facial area with lacerations with suture placement along with 3 fractured ribs to the costovertebral junction on the right from the 10th to the 12th rib. Plan: Regarding the rib fractures, we are going to put a Lidoderm patch on the area that is tender, 5% patch. He is also on scheduled Tylenol 650 mg every 6 hours. He can have some oxycodone orally as needed for increased pain. We will repeat a chest x-ray in the morning. The patient has been having some low oxygen saturation, so we had him on 2 L nasal cannula to keep his sats greater than 90%. We are doing incentive spirometer every 2 hours while awake. Regarding the patient's facial lacerations, the nurse had cleaned his facial wounds thoroughly today. I did use a couple of silver nitrate sticks on some small bleeders that were continuing to bleed. We applied Bactroban ointment to his face. Hemostasis was obtained. I do have him on Augmentin 875 mg twice a day orally prophylactically because the patient's lacerations were very dirty with manure, straw, and mud in the lacerations when he came into the emergency room. 2. Blood loss Anemia. Plan: The patient's hemoglobin yesterday when he came into the ER was 11.4, today it is down to 8.9. We will repeat a CBC in the morning. The patient continues to be on Plavix for his coronary artery disease along with Coumadin for chronic atrial fibrillation. We rechecked an INR this morning, it was 2.0. We will recheck it tomorrow. We will continue with ferrous sulfate 220 mg daily. If it continues to drop, he may need blood transfusion tomorrow. We will monitor closely. 3. History of hyperlipidemia. Plan. We will continue with atorvastatin 40 mg daily. 4. History of hypocalcemia. Plan: We will continue with calcium citrate 1 tablet twice a day. His calcium was slightly low today at 7.9. We will give him a 1 time dose of calcium carbonate 1000 mg a day. Recheck a CMP in the morning. 5. History of coronary artery disease with hypertension. Plan: We will continue with beta-wili of Coreg 6.25 mg twice a day along with his diuretic of Lasix 40 mg daily. He is also on an ARB of losartan 50 mg daily. He also takes a calcium channel wili of Cardizem CD 120 mg daily. We will continue with Plavix 75 mg daily. Monitor blood pressure closely. 6. History of BPH. Plan: Continue with Flomax 0.8 mg daily along with Proscar 5 mg daily. 7. History of insomnia. Plan: Continue with Remeron 15 mg at bedtime and melatonin as needed for sleep. 8. History of gastroesophageal reflux disease. Plan: Continue with Protonix 40 mg daily in the morning. 9. History of restless legs syndrome. Continue with Mirapex as ordered. He gets a dose at noon and bedtime. 10.History of chronic atrial fibrillation, on anticoagulation therapy. Plan: We held the patient's Coumadin last evening, but we will give it tonight at 6 p.m., he gets 5 mg. We will repeat an INR in the morning. /[id number]/MODL MTDD
[2019-09-01] MEDS: Pramipexole 0.125 MG Tab PO SCH (14:30)
[2019-09-01] MEDS: Warfarin 5 MG Tab PO SCH (17:00)
[2019-09-01] MEDS: Tamsulosin 0.4 MG Cap.ER PO SCH (20:53)
[2019-09-01] MEDS: atorvaSTATin 40 MG Tab PO SCH (20:55)
[2019-09-01] MEDS: Pramipexole 0.5 MG Tab PO SCH (20:55)
[2019-09-01] MEDS: Mirtazapine 15 MG Tab PO SCH (20:55)
[2019-09-02] MEDS: Acetaminophen 325 MG Tab PO SCH ×4 (06:04→22:30)
[2019-09-02] MEDS: oxyCODONE 5 MG Tab PO PRN (06:05)
[2019-09-02] MEDS: Pantoprazole 40 MG Tab.CR PO SCH (06:31)
--- NOTE | 2019-09-02 09:07 | CR ---
[id number] RAD/RAD Chest PA And Lateral EXAM: FRONTAL AND LATERAL CHEST INDICATION: LOW O2 SATS. COMPARISON: August 31, 2019. DISCUSSION: Hyperinflation compatible with chronic obstructive pulmonary disease. Stable cardiomegaly without evidence of pulmonary edema. Prosthetic aortic valve. Event recorder. Sternotomy. IMPRESSION: 1. No acute findings. Parish Steven MD 09/02/19 0905 Thank you for allowing us to participate in the care of your patient.
[2019-09-02] MEDS ORDERED: Diclofenac Sodium 1% Gel 100 GM Tube TOP PRN (09:36)
[2019-09-02] MEDS: Furosemide 40 MG Tab PO SCH (09:37)
[2019-09-02] MEDS: Diltiazem 120 MG Cap.CD PO SCH (09:37)
[2019-09-02] MEDS: Finasteride 5 MG Tab PO SCH (09:37)
[2019-09-02] MEDS: Calcium Citrate/Vitamin D3 315 MG-250 Unit Tab PO SCH ×2 (09:37→21:06)
[2019-09-02] MEDS: Carvedilol 6.25 MG Tab PO SCH ×2 (09:38→21:06)
[2019-09-02] MEDS: Clopidogrel 75 MG Tab PO SCH (09:39)
[2019-09-02] MEDS: Losartan 50 MG Tab PO SCH (09:39)
[2019-09-02] MEDS: Mupirocin Oint 22 GM Tube TOP SCH ×3 (10:14→21:07)
[2019-09-02] MEDS: VITRON C PO SCH (10:14)
[2019-09-02] MEDS: Ferrous Sulfate Liq 300 MG/5 ML Cup PO SCH ×2 (10:15→10:24)
[2019-09-02] MEDS: Amoxicillin/Clavulanate K 875-125 MG Tab PO SCH ×2 (10:46→22:30)
--- NOTE | 2019-09-02 11:09 | PN ---
09/02/2019 PATIENT NAME: GAIL BEAL SUBJECTIVE: This is an 84-year-old gentleman was trying to separate a couple bulls. He went into the [place] and hit one of the bulls with a big stick try to get him to quit fighting. At that time, the bull had turned on him and knocked him down on the ground and then pushed him around on the ground for a while. The patient's daughter had brought him to the emergency room. In the emergency room, multiple CAT scans were obtained, which showed 3 nondisplaced rib fractures on his right side, 10 to 12th ribs at the costovertebral junction. The patient also had a large laceration to the left side of his face that was sutured shut. CT of the head was unremarkable. Now, today, the patient states that he still is having lots of soreness. He has lots of muscle aches. He says his left buttocks is very painful and sore. He also complains of his right leg aching. He says that it hurts just to walk on it. He does feel slightly short of breath with activity. He denies coughing up any blood, but he states he has been coughing up some phlegm. He says it is like a burnett in color. He did have an episode of chest pain last night that was actually resolved when he got up and walked around. The patient continues to have lots of back pain. He states that he can see out of his left eye today. It is not swollen shut. The patient is in a good mood, eating breakfast. OBJECTIVE: VITAL SIGNS: Today, pulse is 67, blood pressure is 121/60, oxygen saturations are 94% on room air. He did drop into the upper 80s and required 1 L of oxygen during the night. Temperature is 98.2, respiratory rate is 20. The patient's weight today is 183 pounds, which he was on admission. GENERAL: This is an elderly white male, in no acute distress. HEENT: He does have a lot of trauma to the left side of his face. There is a lot of bruising, sutures, swelling, lot of abrasions. No active bleeding. LUNGS: Lung sounds are clear throughout lung santillan. CARDIAC: Heart tones, he does have a murmur from his artificial valve. Rate is regular rate and rhythm. ABDOMEN: Soft, nontender, nondistended. Bowel sounds present x4. EXTREMITIES: No pedal edema noted. The patient does have tenderness to his back along his spine on the right side with palpation. LABORATORY DATA: Lab work today CBC shows white count within normal range at 8.06, hemoglobin 8.7, platelet count 115. The patient's INR today is 1.9. Chemistry panel today is unremarkable except for he does have history of chronic kidney disease stage 4. Creatinine is 1.51, BUN is 38, GFR is 44. Calcium is still slightly low at 8.2. IMPRESSION AND PLAN: 1. Trauma to left facial area with lacerations with suture placement along with 3 nondisplaced fractured ribs to the costovertebral junction on the right from the 10th the 12th ribs. Plan: Regarding the rib fractures, I did repeat a chest x-ray today that shows the lungs are clear. Rib fractures were nondisplaced. We do have a Lidoderm patch over the area, 5% patch to help with the pain. He is also on scheduled Tylenol 650 mg every 6 hours. He has been taking some oxycodone every 6 hours as needed for pain. The patient's oxygen saturations during the night had dropped into the 80s at 88% to 89%. He was placed on 1 L nasal cannula to keep his O2 sats greater than 90%. Today, he is sitting in a chair and they took the oxygen off, he is around 94%. We will continue having him use the incentive spirometer every 2 hours while awake. He has been having a productive cough with some burnett phlegm. Regarding the patient's facial trauma with lacerations, no active bleeding today. We will continue to apply Bactroban ointment to his face twice daily. Prophylactically, we will continue him on Augmentin 875 mg twice a day for infection. Ice pack as needed. The patient's swelling is much improved today. His left eye is actually open today and he states he can see out of his left eye. This is improved from yesterday. 2. Blood loss anemia. Plan: The patient's hemoglobin yesterday was 8.9, now today is 8.7. We will repeat the patient's lab work tomorrow again. The patient continues on Plavix. The patient has a long cardiac history. He had open-heart surgery 35 years ago and he has had multiple stents placed since then. He continues on Plavix 75 mg daily. The patient also is on Coumadin for history of heart valve replacement. The patient's INR today was slightly low at 1.9. I am going to have pharmacy dose his Coumadin. We will continue him on ferrous sulfate 300 mg daily along with vitamin C. We will recheck blood work tomorrow. 3. History of hyperlipidemia. Plan: We will continue with atorvastatin 40 mg daily. 4. History of hypocalcemia. Plan: The patient's calcium was slightly improved today up to 8.2. We will continue with his calcium citrate one tablet twice daily. 5. History of coronary artery disease with hypertension. Plan: We will continue with beta-wili of Coreg 6.25 mg twice a day along with diuretic of Lasix 40 mg daily. He also is on an ARB of losartan 50 mg daily. He also takes calcium channel wili of Cardizem CD 120 mg daily, Plavix 75 mg daily. We will monitor blood pressures closely. 6. History of benign prostatic hypertrophy. Plan: We will continue with Flomax 0.8 mg daily along with Proscar 5 mg daily. 7. History of insomnia. Plan: Continue with Remeron 15 mg at bedtime and melatonin as needed for sleep. 8. History of gastroesophageal reflux disease. Plan: Continue with Protonix 40 mg daily in the morning. 9. History of restless legs syndrome. Continue with Mirapex as ordered. He gets a dose at noon and at bedtime. OVERALL PLAN: The patient is still requiring oxygen on and off to keep his sats greater than 90%. I am going to switch him from observation to inpatient. We will continue with oxygen as needed. We will also continue patient on incentive spirometer every 2 hours while awake. Chest x-ray today was clear. We will keep with a Lidoderm patch is to help with pain. Also, the patient's Hgb level is low. His hemoglobin today was 8.7. We will recheck his CBC tomorrow. The patient is 84 years old and lives by himself in assisted living. He still very weak at this point. I did order physical therapy for him for some strengthening with the hemoglobin being low and shortness of breath and sore and stiff muscles. Physical therapy will need to work with him prior to sending him home by himself. The patient did have an episode of chest pain yesterday. Troponins were followed up and they were all negative. EKG was unremarkable. We will continue him on infectious prophylaxis to his face with Augmentin and Bactroban. Nursing staff will clean the wounds daily. /[id number]/MODL MTDD
[2019-09-02] MEDS: Pramipexole 0.125 MG Tab PO SCH (13:26)
[2019-09-02] MEDS: Warfarin 5 MG Tab PO SCH (18:11)
[2019-09-02] MEDS: atorvaSTATin 40 MG Tab PO SCH (21:05)
[2019-09-02] MEDS: Mirtazapine 15 MG Tab PO SCH (21:06)
[2019-09-02] MEDS: Pramipexole 0.5 MG Tab PO SCH (21:06)
[2019-09-02] MEDS: Tamsulosin 0.4 MG Cap.ER PO SCH (21:06)
[2019-09-03] MEDS: Acetaminophen 325 MG Tab PO SCH ×4 (04:43→22:43)
[2019-09-03] MEDS: Pantoprazole 40 MG Tab.CR PO SCH (07:35)
[2019-09-03 08:08] LABS: ANION GAP 12.9 mmol/L (5-15)
[2019-09-03] MEDS: Diltiazem 120 MG Cap.CD PO SCH (09:34)
[2019-09-03] MEDS: Calcium Citrate/Vitamin D3 315 MG-250 Unit Tab PO SCH ×2 (09:34→21:38)
[2019-09-03] MEDS: Ferrous Sulfate Liq 300 MG/5 ML Cup PO SCH (09:34)
[2019-09-03] MEDS: Finasteride 5 MG Tab PO SCH (09:34)
[2019-09-03] MEDS: Carvedilol 6.25 MG Tab PO SCH ×2 (09:35→21:38)
[2019-09-03] MEDS: Losartan 50 MG Tab PO SCH (09:35)
[2019-09-03] MEDS: Clopidogrel 75 MG Tab PO SCH (09:35)
[2019-09-03] MEDS: Furosemide 40 MG Tab PO SCH (09:35)
[2019-09-03] MEDS: Mupirocin Oint 22 GM Tube TOP SCH ×3 (09:46→21:38)
[2019-09-03] MEDS: VITRON C PO SCH (09:46)
[2019-09-03] MEDS: Amoxicillin/Clavulanate K 875-125 MG Tab PO SCH ×2 (10:56→22:44)
[2019-09-03] MEDS: Pramipexole 0.125 MG Tab PO SCH (12:28)
--- NOTE | 2019-09-03 13:34 | PN ---
09/03/2019 PATIENT NAME: GAIL BEAL SUBJECTIVE: The patient sitting up in bed, conversing, alert and oriented, feels much improved today, slight weakness; however, he has been ambulatory gently in the room. BRIEF HISTORY: This elderly gentleman was initially admitted to observation and then changed to inpatient yesterday. He was hit by a bull and somewhat sustaining laceration to left side of his eye and head, also sustaining 3 nondisplaced rib fractures. The patient does have a history of cardiac stents with valve replacement, is on dual-antiplatelet therapy. Hemoglobin has been down, however, somewhat stable now. The patient does have significant recent subcutaneous bleeding that appears to be depended from the wound, however, hemodynamically stable. REVIEW OF SYSTEMS: GENERAL: Elderly white male, in no acute distress. He sitting in a chair, conversing this morning. HEENT: Significant trauma, however, appears to be healed laceration/significant abrasion, left side of face. LUNGS: No shortness of breath. CARDIAC: He denies any chest pain. ABDOMEN: Denies any constipation. PHYSICAL EXAMINATION: VITAL SIGNS: Blood pressure 132/60, heart rate 77, O2 sats on room air 94%. RESPIRATORY: Lungs are clear throughout all lung santillan. CARDIAC: Normal heart tones. Slight murmur. Regular rate and rhythm. ABDOMEN: Soft, nondistended. Good bowel tones. EXTREMITIES: No pedal edema noted. INTEGUMENTARY: Significant bruising, ecchymosis, left-sided facial trauma extending down pulling into his neck, however, signs of healing. LABORATORY DATA: White count 7.8; hemoglobin 8.5, slightly down from yesterday; neutrophilia 75%; platelets 130,000. PT 14.8, INR very subtherapeutic at 1.5. Sodium and potassium normal. BUN 35, creatinine 1.39. Calcium 8.4, magnesium normal. Troponin was normal. Albumin 2.97. IMPRESSION AND PLAN: 1. Trauma, left facial area with intact sutures. Continue with antibiotics. Suture removal planned. 2. Rib fractures. Supportive care, pain management, local Lidoderm, pulmonary excursion, incentive spirometer. 3. Anemia, likely blood loss with concomitant dual anti-platelet therapy. We will place the patient on iron, monitor hemoglobin. The patient does have subtherapeutic INR. We will give an extra dose of Coumadin today, risk versus benefit. 4. History of hyperlipidemia. Continue with atorvastatin. 5. Benign prostatic hypertrophy. Continue with Flomax and Proscar. Blood pressure acceptable. 6. Gastroesophageal reflux disease. Continue with Protonix. OVERALL PLAN TODAY: Continue with appropriate incentive spirometer and pulmonary excursion, ongoing antibiotic, likely will be discharged tomorrow with a plan for suture removal and carefully monitoring his platelets with home iron and close followup. /[id number]/MODL MTDD
[2019-09-03] MEDS ORDERED: Warfarin 5 MG Tab PO SCH (18:00)
[2019-09-03] MEDS: Pramipexole 0.5 MG Tab PO SCH (21:39)
[2019-09-03] MEDS: atorvaSTATin 40 MG Tab PO SCH (21:39)
[2019-09-03] MEDS: Tamsulosin 0.4 MG Cap.ER PO SCH (21:39)
[2019-09-03] MEDS: Mirtazapine 15 MG Tab PO SCH (21:39)
[2019-09-04] MEDS: Acetaminophen 325 MG Tab PO SCH ×2 (04:07→10:35)
[2019-09-04] MEDS: Pantoprazole 40 MG Tab.CR PO SCH (07:53)
[2019-09-04] MEDS: Mupirocin Oint 22 GM Tube TOP SCH (08:29)
[2019-09-04] MEDS: VITRON C PO SCH (08:29)
[2019-09-04] MEDS: Finasteride 5 MG Tab PO SCH (08:30)
[2019-09-04] MEDS: Diltiazem 120 MG Cap.CD PO SCH (08:30)
[2019-09-04] MEDS: Furosemide 40 MG Tab PO SCH (08:30)
[2019-09-04] MEDS: Clopidogrel 75 MG Tab PO SCH (08:30)
[2019-09-04] MEDS: Calcium Citrate/Vitamin D3 315 MG-250 Unit Tab PO SCH (08:30)
[2019-09-04 08:31] VITALS: BP 120/59; PULSE 77
[2019-09-04] MEDS: Carvedilol 6.25 MG Tab PO SCH (08:31)
[2019-09-04] MEDS: Losartan 50 MG Tab PO SCH (08:32)
[2019-09-04] MEDS: Ferrous Sulfate Liq 300 MG/5 ML Cup PO SCH (08:36)
[2019-09-04] MEDS ORDERED: Magnesium Hydroxide 400 MG/5 ML Susp 30 ML Cup PO ONE (08:50)
[2019-09-04] MEDS ORDERED: Magnesium Hydroxide 400 MG/5 ML Susp 30 ML Cup PO SCH (09:45)
--- NOTE | 2019-09-04 10:23 | PCM.DCSUM1 ---
Discharge Summary - Hospital Course Diagnosis: Stroke: No - Discharge Data Discharge Date: 09/04/19 Discharge Disposition: Home, W Home Health Agency 06 Condition: Good - Referral to Home Health Date of Face to Face Encounter: 09/04/19 Reason for Homebound Status: This is a [id number] encounter for home health nursing physical therapy to include occupational therapy. Patient is in need of skilled care to develop an in-home therapy program due to weakness, wound care assessment to his face along with monitoring sutures in his face as patient has high risk of infection due to recent dirty wound and injury to his face. He will need occupational therapy as he does have muscle weakness due to recent facial surgery and fractured ribs. He is at high risk of pneumonia due to fracture risk with limited pulmonary excursion. Patient also has unsteady gait due to recent rib fractures and lack of movement and mobility due to pain. Patient is homebound at this time due to lack of visual acuity due to swelling in his face due to lacerations and trauma. Patient will be followed by Xiomy Sawant NP and will sign off any home health orders. Primary Care Physician: Xiomy Sawant NP Skilled Need: This is a [id number] encounter for home health nursing physical therapy to include occupational therapy. Patient is in need of skilled care to develop an in-home therapy program due to weakness, wound care assessment to his face along with monitoring sutures in his face as patient has high risk of infection due to recent dirty wound and injury to his face. He will need occupational therapy as he does have muscle weakness due to recent facial surgery and fractured ribs. He is at high risk of pneumonia due to fracture risk with limited pulmonary excursion. Patient also has unsteady gait due to recent rib fractures and lack of movement and mobility due to pain. Patient is homebound at this time due to lack of visual acuity due to swelling in his face due to lacerations and trauma. Patient will be followed by Xiomy Sawant NP and will sign off any home health orders. - Patient Summary/Data Consults: Consultations 09/01/19 18:45 Consult to Case Management/Student Services Advisor [CONS] Routine 09/02/19 09:37 Consult to Physical Therapy [PT Evaluation and Treatment] [CONS] Routine 09/02/19 09:38 Consult to Anticoagulation Clinic [CONS] Routine - Patient Instructions Diet: Usual Diet as Tolerated Activity: As Tolerated, Cough & Deep Breathe Driving: Do Not Drive Showering/Bathing: May Shower Notify Provider of: Fever Other/Special Instructions: Do not pick at scabs on face, report bleeding from face. Suture removal Monday [facility]. Take your medication for constipation. Use your breathing machine as taught in hospital. You should be receiving physical therapy and nursing therapy while at assisted living. A walker has been ordered for you. The INR clinic will manage coumadin - Discharge Plan *PRESCRIPTION DRUG MONITORING PROGRAM REVIEWED*: Not Applicable *COPY OF PRESCRIPTION DRUG MONITORING REPORT IN PATIENT MYRA: Not Applicable Prescriptions/Med Rec: Amoxicillin/Clavulanate K [Augmentin 875-125 MG] 1 tab PO Q12H #8 tablet Magnesium Hydroxide [Milk of Magnesia] 30 ml PO DAILY PRN #300 ml PRN Reason: Constipation Home Medications: Home Meds Finasteride 5 mg PO DAILY 12/23/14 [History] Pramipexole [Mirapex] 0.5 mg PO BEDTIME 12/23/14 [History] carvediloL [Carvedilol] 6.25 mg PO BID 12/23/14 [History] Calcium Citrate/Vitamin D2 [Kilo-Citrate Plus Vitamin D Tab] 1 each PO DAILY [History] Clopidogrel [Plavix] 75 mg PO DAILY 12/09/16 [History] Furosemide 40 mg PO DAILY 12/09/16 [History] Losartan [Cozaar] 50 mg PO DAILY 12/09/16 [History] Melatonin 5 mg PO BEDTIME PRN 12/09/16 [History] Nitroglycerin [IJP: Nitroglycerin] 0.4 mg SL TID PRN 12/09/16 [History] Pantoprazole Sodium 40 mg PO DAILY 12/09/16 [History] dilTIAZem HCl [Diltiazem 24Hr Cd] 120 mg PO DAILY 12/09/16 [History] Acetaminophen [Tylenol] 650 mg PO Q6H PRN 01/11/19 [History] Docusate Sodium [Colace] 100 mg PO DAILY PRN 01/11/19 [History] Pramipexole [Mirapex] 0.25 mg PO 1200 01/11/19 [History] Tamsulosin [Flomax] 0.8 mg PO BEDTIME 01/11/19 [History] Warfarin [Coumadin] 5 mg PO 1800 01/11/19 [History] atorvaSTATin Calcium [Atorvastatin Calcium] 40 mg PO BEDTIME 01/11/19 [History] Ferrous Sulfate 5 ml PO DAILY 08/31/19 [History] Mirtazapine [Remeron] 15 mg PO BEDTIME 08/31/19 [History] Amoxicillin/Clavulanate K [Augmentin 875-125 MG] 1 tab PO Q12H #8 tablet [Rx] Magnesium Hydroxide [Milk of Magnesia] 30 ml PO DAILY PRN #300 ml 09/04/19 [Rx] Referrals: [facility] [Outside] Xiomy Sawant, ASSISTANT CONSTRUCTION SUPERINTENDENT [Primary Care Provider] - (Monday next week) - Discharge Summary/Plan Comment DC Time >30 min.: Yes Discharge Summary/Plan Comment: Final diagnosis --Laceration, left facial area --Anemia, blood loss --Rib fractures, right-sided, 10-12 --Constipation --Gait instability History Abhinav, 84-year-old male, entered into a pen were 2 bulls were fighting with each other, in an attempt to separate them he was knocked down by a bull causing him to hit hard on the icy ground, causing the laceration and abrasions to his head and face. The bull then proceeded to head and roll him, at least twice, then backing away. This allowed Abhinav to stand up and able to extricate himself from the pin. He had no loss of consciousness. On dual antiplatelet 2 stents and valvular repair. Sustained rib fractures and was subsequently sutured with 20 stitches. He was admitted initially into observation and then inpatient for wound care, bleeding control, pain management. Anesthetic Type: Local Local Anesthesia - Lidocaine (Xylocaine): 1% with EPI Local Anesthetic Volume: 4cc Skin Prep: Saline Exploration/Debridement/Repair: Wound Explored, Moderate Debridement Closed with: Sutures Suture Size: 5-0 # of Sutures: 20 Suture Type: Prolene, Interrupted Diagnostics CT pelvis, no acute findings CT spine, no fracture or compression deformities CT head, left orbital soft tissue contusion, no acute intracranial hemorrhage, no underlying facial fracture CT thoracic spine, nondisplaced ribs 10-12 Chest x-ray, no acute findings Hospital course Patient's hospital course went fairly well, he was given antibiotics prophylactically due to dirty wound, initially he had significant facial trauma , swelling, making it difficult to open left eye however this was much improved upon discharge. Pain control measures were given, his INR was subtherapeutic and he had altered dosages. INR on discharge 2.1 which was improved, he did have some bleeding which required cauterization to his face after sutures. Coumadin and Plavix were continued, he did have blood loss anemia and iron was started, hemoglobin on discharge 8.6. He never became hemodynamically compromised, he was continued on his cardiac medications. Lidoderm patch was applied. Medication changes/adjustments upon discharge Augmentin 875 mg p.o. twice daily x4 more days Milk of magnesia 30 cc daily as needed for constipation Continue with antiplatelet medication Disposition --Will be discharged back to assisted living with home health, PT and OT --Suture removal Monday along with follow-up with provider --Prescription given for walker This is a celw-ym-hdom encounter for home health nursing physical therapy to include occupational therapy. Patient is in need of skilled care to develop an in-home therapy program due to weakness, wound care assessment to his face along with monitoring sutures in his face as patient has high risk of infection due to recent dirty wound and injury to his face. He will need occupational therapy as he does have muscle weakness due to recent facial surgery and fractured ribs. He is at high risk of pneumonia due to fracture risk with limited pulmonary excursion. Patient also has unsteady gait due to recent rib fractures and lack of movement and mobility due to pain. Patient is homebound at this time due to lack of visual acuity due to swelling in his face due to lacerations and trauma. Patient will be followed by Xiomy Sawant NP and will sign off any home health orders. - Patient Data Vitals - Most Recent: Last Vital Signs Temp 97.4 F 09/04/19 06:10 Pulse 77 09/04/19 08:31 Resp 20 09/04/19 06:10 BP 120/59 L 09/04/19 08:32 Pulse Ox 95 09/04/19 09:05 Weight - Most Recent: 183 lb I&O - Last 24 hours: Intake & Output 09/03/19 09/04/19 09/04/19 22:59 06:59 14:59 Intake Total 300 200 Output Total 200 300 Balance 100 -100 Lab Results - Last 24 hrs: Laboratory Results - last 24 hr 09/04/19 Range/Units 08:50 PT TNP INR 2.1 H (0.9-1.1) Med Orders - Current: Current Medications Acetaminophen (Tylenol) 650 mg PO Q6H [facility] Last Admin: 09/04/19 04:07 Dose: 650 mg Amoxicillin/Clavulanate Potassium (Augmentin 875 Mg/125 Mg) 1 tab PO Q12H [facility] Last Admin: 09/03/19 22:44 Dose: 1 tab Atorvastatin Calcium (Lipitor) 40 mg PO BEDTIME [facility] Last Admin: 09/03/19 21:39 Dose: 40 mg Calcium Citrate (Calcium Citrate + D) 1 tab PO BID [facility] Last Admin: 09/04/19 08:30 Dose: 1 tab Carvedilol (Coreg) 6.25 mg PO BID [facility] Last Admin: 09/04/19 08:31 Dose: 6.25 mg Clopidogrel Bisulfate (Plavix) 75 mg PO DAILY [facility] Last Admin: 09/04/19 08:30 Dose: 75 mg Diclofenac Sodium (Voltaren 1% Gel) 1 gm TOP QID PRN PRN Reason: Muscle Spasm Diltiazem HCl (Cardizem Cd) 120 mg PO DAILY [facility] Last Admin: 09/04/19 08:30 Dose: 120 mg Docusate Sodium (Colace) 100 mg PO DAILY PRN PRN Reason: Constipation Last Admin: 09/03/19 17:07 Dose: 100 mg Ferrous Sulfate (Ferrous Sulfate) 300 mg PO DAILY [facility] Last Admin: 09/04/19 08:36 Dose: 300 mg Finasteride (Proscar) 5 mg PO DAILY [facility] Last Admin: 09/04/19 08:30 Dose: 5 mg Furosemide (Lasix) 40 mg PO DAILY [facility] Last Admin: 09/04/19 08:30 Dose: 40 mg Lidocaine (Lidoderm 5%) 700 mg TOP DAILY PRN PRN Reason: Pain (moderate 4-6) Last Admin: 09/01/19 11:06 Dose: 700 mg Losartan Potassium (Cozaar) 50 mg PO DAILY [facility] Last Admin: 09/04/19 08:32 Dose: 50 mg Magnesium Hydroxide (Milk Of Magnesia) 30 ml PO DAILY [facility] Mirtazapine (Remeron) 15 mg PO BEDTIME [facility] Last Admin: 09/03/19 21:39 Dose: 15 mg Miscellaneous Information (Remove Patch) 1 ea TRDERM Q24H PRN PRN Reason: Pain Mupirocin (Bactroban Oint) 0 gm TOP TID [facility] Last Admin: 09/04/19 08:29 Dose: 1 applic Nitroglycerin (Nitrostat) 0.4 mg SL TID PRN PRN Reason: Chest Pain Oxycodone HCl (Oxycodone) 5 mg PO Q4H PRN PRN Reason: Pain (moderate 4-6) Last Admin: 09/02/19 06:05 Dose: 5 mg Pantoprazole Sodium (Protonix) 40 mg PO ACBREAKFAST [facility] Last Admin: 09/04/19 07:53 Dose: 40 mg Vitron-C - Ptom 1 each PO DAILY [facility] Last Admin: 09/04/19 08:29 Dose: 1 each Pramipexole Dihydrochloride (Mirapex) 0.25 mg PO 1200 [facility] Last Admin: 09/03/19 12:28 Dose: 0.25 mg Pramipexole Dihydrochloride (Mirapex) 0.5 mg PO BEDTIME [facility] Last Admin: 09/03/19 21:39 Dose: 0.5 mg Tamsulosin HCl (Flomax) 0.8 mg PO BEDTIME [facility] Last Admin: 09/03/19 21:39 Dose: 0.8 mg Warfarin Sodium (Pharmacy To Dose - Warfarin) 1 dose .XX ASDIRECTED [facility] Warfarin Sodium (Coumadin) 10 mg PO DAILY@1800 [facility] Last Admin: 09/03/19 17:07 Dose: 10 mg Discontinued Medications Calcium Carbonate/Glycine (Tums) 1,000 mg PO ONETIME ONE Stop: 09/01/19 10:00 Last Admin: 09/01/19 11:07 Dose: 1,000 mg Diphtheria/Tetanus/Acell Pertussis (Adacel) 0.5 ml IM .ONCE ONE Stop: 08/31/19 18:05 Last Admin: 08/31/19 18:35 Dose: 0.5 ml Ferrous Sulfate (Ferrous Sulfate) 220 mg PO DAILY [facility] Last Admin: 09/02/19 10:24 Dose: Not Given Hydromorphone HCl (Dilaudid) 1 mg IVPUSH ONETIME ONE Stop: 08/31/19 18:55 Last Admin: 08/31/19 19:05 Dose: 1 mg Lactated Ringer's (Ringers, Lactated) 1,000 mls @ 50 mls/hr IV ASDIRECTED [facility] Last Admin: 08/31/19 19:03 Dose: 50 mls/hr Sodium Chloride (Normal Saline) 1,000 mls @ 40 mls/hr IV ASDIRECTED [facility] Last Admin: 08/31/19 23:26 Dose: 40 mls/hr Lidocaine/Epinephrine (Xylocaine 1% With Epinephrine 1:100,000) Confirm Administered Dose 20 ml .ROUTE .STK-MED ONE Stop: 08/31/19 19:37 Last Admin: 09/01/19 23:24 Dose: Not Given Magnesium Hydroxide (Milk Of Magnesia) 30 ml PO ONETIME ONE Stop: 09/04/19 08:51 Last Admin: 09/04/19 09:20 Dose: 30 ml Non-Formulary Medication (Melatonin [Melatonin]) 5 mg PO BEDTIME PRN PRN Reason: Sleep Sodium Chloride (Saline Flush) 10 ml FLUSH Q8HR PRN PRN Reason: keep vein open Tamsulosin HCl (Flomax) Confirm Administered Dose 3.2 mg .ROUTE .STK-MED ONE Stop: 08/31/19 23:53 Last Admin: 09/01/19 00:10 Dose: Not Given Warfarin Sodium (Coumadin) 5 mg PO DAILY@1800 [facility] Last Admin: 09/02/19 18:11 Dose: 5 mg
[2019-09-04] MEDS: Amoxicillin/Clavulanate K 875-125 MG Tab PO SCH (10:35)
== END 2019-09-04 11:25 | disposition home health service (06) | DRG 184 ==
LOC: KA.ED 16:57 → KA.MS 21:11 → OBSVTOIN 09-02 09:33
PROVIDERS: ADMIT Physician Assistant; ATTEND Family Medicine
DX: S22.41XA Multiple fractures of ribs, right side, initial encounter for closed fracture (principal); I48.20 Chronic atrial fibrillation, unspecified; S01.81XA Laceration without foreign body of other part of head, initial encounter; S00.83XA Contusion of other part of head, initial encounter; I25.10 Atherosclerotic heart disease of native coronary artery without angina pectoris; N40.0 Benign prostatic hyperplasia without lower urinary tract symptoms; G25.81 Restless legs syndrome; K21.9 Gastro-esophageal reflux disease without esophagitis; D50.0 Iron deficiency anemia secondary to blood loss (chronic); R26.9 Unspecified abnormalities of gait and mobility; E83.51 Hypocalcemia; E78.5 Hyperlipidemia, unspecified; G47.00 Insomnia, unspecified; H54.7 Unspecified visual loss; G47.30 Sleep apnea, unspecified; K59.09 Other constipation; N18.9 Chronic kidney disease, unspecified; I12.9 Hypertensive chronic kidney disease with stage 1 through stage 4 chronic kidney disease, or unspecified chronic kidney disease; H57.89 Other specified disorders of eye and adnexa; M25.551 Pain in right hip; M54.6 Pain in thoracic spine; N18.1 Chronic kidney disease, stage 1; Z79.899 Other long term (current) drug therapy; W55.22XA Struck by cow, initial encounter; Y92.89 Other specified places as the place of occurrence of the external cause; Z79.01 Long term (current) use of anticoagulants; Z95.2 Presence of prosthetic heart valve; Z95.5 Presence of coronary angioplasty implant and graft; Z95.1 Presence of aortocoronary bypass graft; Z79.02 Long term (current) use of antithrombotics/antiplatelets
CPT/HCPCS: 12013; 36415; 36416; 51798; 70450; 70486; 71045; 71046; 72125; 72128; 72170; 80053; 81001; 83735; 84484; 85025; 85610; 85730; 90715; 93005; 97110-GP; 97162-GP; 99284; A9270-GY; J1170; J7030; J7120; Q3014

== ENCOUNTER 2020-06-12 18:28 | Emergency (ER) | payer MEDICARE, OTHER ==
[2020-06-12 18:38] VITALS: BP 145/71; PULSE 110
--- NOTE | 2020-06-12 18:43 | EDM.PDOC ---
ED HPI GENERAL MEDICAL PROBLEM - General Chief Complaint: General Stated Complaint: ?CELLULITIS Time Seen by Provider: 06/12/20 18:43 Source of Information: Reports: Patient History Limitations: Reports: No Limitations - History of Present Illness INITIAL COMMENTS - FREE TEXT/NARRATIVE: Abhinav, 85-year-old male, has noticed increased warmth, and tonight redness with increased warmth to the right holder and top of the right foot. Denies any pain or discomfort to ambulation. 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 Noticed swelling at that time did some exercises that seemingly resolved the discomfort. The past day or so has noticed increase in tenderness and developed redness with warmth presenting for evaluation of a likely cellulitis this evening. He denies any other issues or concerns states he has had a good summer. His INR was tested 9 days ago and was at 2.1 if he remembers correctly. He has done well since his accident that I was involved in his care with him last winter. Onset: Gradual Duration: Day(s):, Getting Worse Location: Reports: Lower Extremity, Right Quality: Reports: Burning, Pressure Severity: Moderate Improves with: Reports: None Worsens with: Reports: Movement Context: Reports: Activity Associated Symptoms: Reports: No Other Symptoms - Related Data Allergies Allergy/AdvReac Type Severity Reaction Status Date / Time No Known Allergies Allergy Verified 06/12/20 18:33 Home Meds: Home Meds Finasteride 5 mg PO DAILY 12/23/14 [History] Pramipexole [Mirapex] 0.5 mg PO BEDTIME 12/23/14 [History] carvediloL [Carvedilol] 6.25 mg PO BID 12/23/14 [History] Calcium Citrate/Vitamin D2 [Kilo-Citrate Plus Vitamin D Tab] 1 each PO DAILY 12/09/16 [History] Clopidogrel [Plavix] 75 mg PO DAILY 12/09/16 [History] Furosemide 40 mg PO DAILY 12/09/16 [History] Losartan [Cozaar] 50 mg PO DAILY 12/09/16 [History] Melatonin 5 mg PO BEDTIME PRN 12/09/16 [History] Nitroglycerin [IJP: Nitroglycerin] 0.4 mg SL TID PRN 12/09/16 [History] Pantoprazole Sodium 40 mg PO DAILY 12/09/16 [History] dilTIAZem HCl [Diltiazem 24Hr Cd] 120 mg PO DAILY 12/09/16 [History] Acetaminophen [Tylenol] 650 mg PO Q6H PRN 01/11/19 [History] Docusate Sodium [Colace] 100 mg PO DAILY PRN 01/11/19 [History] Pramipexole [Mirapex] 0.25 mg PO 1200 01/11/19 [History] Tamsulosin [Flomax] 0.8 mg PO BEDTIME 01/11/19 [History] Warfarin [Coumadin] 5 mg PO 1800 01/11/19 [History] atorvaSTATin Calcium [Atorvastatin Calcium] 40 mg PO BEDTIME 01/11/19 [History] Ferrous Sulfate 5 ml PO DAILY 08/31/19 [History] Mirtazapine [Remeron] 15 mg PO BEDTIME 08/31/19 [History] Amoxicillin/Clavulanate K [Augmentin 875-125 MG] 1 tab PO Q12H #8 tablet 09/04/19 [Rx] Magnesium Hydroxide [Milk of Magnesia] 30 ml PO DAILY PRN #300 ml 09/04/19 [Rx] cephALEXin [Cephalexin] 500 mg PO BID 4 Days #9 capsule 06/12/20 [Rx] cephALEXin [Keflex] 500 mg PO BID 4 Days cap 06/12/20 [Rx] Past Medical History HEENT History: Reports: Head, Impaired Vision Cardiovascular History: Reports: Bypass, CAD, Heart Valve Replacement, Hypertension, Stents Respiratory History: Reports: Sleep Apnea Gastrointestinal History: Reports: Chronic Constipation, GERD Genitourinary History: Reports: Prostate Disorder, Other (See Below) Other Genitourinary History: chronic kidney disease Other Musculoskeletal History: current Rib fx to post thorax x 3 Hematologic History: Reports: Iron Deficiency Dermatologic History: Reports: Other (See Below) Other Dermatologic History: laceration reairs to head/face - Past Surgical History Cardiovascular Surgical History: Reports: Carotid Stents, Coronary Artery Bypass, Valve Replacement Social & Family History - Family History Family Medical History: Noncontributory - Caffeine Use Caffeine Use: Reports: Coffee, Soda ED ROS GENERAL - Review of Systems Review Of Systems: Comprehensive ROS is negative, except as noted in HPI. ED EXAM, GENERAL - Physical Exam Exam: See Below Free Text/Narrative:: Alert oriented in no acute distress. HEENT is negative discharge or deformity. Thorax is clear mildly diminished bases with no wheezes no crackles. Cardiac is slightly irregular with noted ectopic beats pulse right radial correlating. Focused examination to the lower extremities show a normal-appearing left lower extremity with no edema skin warm and dry. Right lower extremity shows warmth to touch as well as erythema to the anterior lateral holder region, negative pain in the calf, and also slightly reddened to the dorsum of the foot. There is noted +2 edema to the ankle and foot. No significant pain to motion but feels a tightness pressure. Course - Vital Signs Last Recorded V/S: Last Vital Signs Temp 36.0 C L 06/12/20 18:36 Pulse 110 H 06/12/20 18:36 Resp 20 06/12/20 18:36 BP 145/71 H 06/12/20 18:36 Pulse Ox 96 06/12/20 18:36 - Orders/Labs/Meds Meds: Medications Discontinued Medications Generic Name Dose Route Start Last Admin Trade Name Freq PRN Reason Stop Dose Admin Cephalexin 500 mg 06/12/20 18:56 Keflex PO 06/12/20 18:57 ONETIME ONE Cephalexin 2,500 mg 06/12/20 18:57 Keflex PO 06/12/20 18:58 ONETIME ONE Departure - Departure Time of Disposition: 19:06 Disposition: Home, Self-Care 01 Condition: Good Clinical Impression: Cellulitis of leg, right - Discharge Information *PRESCRIPTION DRUG MONITORING PROGRAM REVIEWED*: Not Applicable *COPY OF PRESCRIPTION DRUG MONITORING REPORT IN PATIENT MYRA: Not Applicable Prescriptions: cephALEXin [Cephalexin] 500 mg PO BID 4 Days #9 capsule cephALEXin [Keflex] 500 mg PO BID 4 Days cap Referrals: PCP,Unknown [Primary Care Provider] - Forms: ED Department Discharge Additional Instructions: Cephalexin 500 mg twice daily for 7 days. You will be given Monday night, both doses Monday and Monday, and Monday morning to take with you. 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 The antibiotic will cause your INR, Coumadin level to elevate. You will need to have that checked Monday at the [facility] in [place]. Continue all of your other medications as directed. Call or return if worsens over the weekend, otherwise they can take a look at this next week as needed. Sepsis Event Note (ED) - Evaluation Sepsis Screening Result: No Definite Risk - Focused Exam Vital Signs: Vital Signs Temp Pulse Resp BP Pulse Ox 06/12/20 18:36 36.0 C L 110 H 20 145/71 H 96 - Problem List & Annotations (1) Cellulitis of leg, right SNOMED Code(s): 076159961 Code(s): L03.115 - CELLULITIS OF RIGHT LOWER LIMB Status: Acute Priority: High Current Visit: Yes - Problem List Review Problem List Initiated/Reviewed/Updated: Yes - Assessment/Plan Plan: Cephalexin 500 mg twice daily for 7 days. You will be given Monday night, both doses Monday and Monday, and Monday morning to take with you. 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 The antibiotic will cause your INR, Coumadin level to elevate. You will need to have that checked Monday at the [facility] in [place]. Continue all of your other medications as directed. Call or return if worsens over the weekend, otherwise they can take a look at this next week as needed.
[2020-06-12] MEDS ORDERED: Cephalexin 250 MG Cap PO ONE ×2 (18:56→18:57)
== END 2020-06-12 19:15 | disposition home or self-care (01) ==
LOC: KA.ED 18:28
DX: L03.115 Cellulitis of right lower limb (principal); I25.10 Atherosclerotic heart disease of native coronary artery without angina pectoris; K21.9 Gastro-esophageal reflux disease without esophagitis; I12.9 Hypertensive chronic kidney disease with stage 1 through stage 4 chronic kidney disease, or unspecified chronic kidney disease; N18.9 Chronic kidney disease, unspecified; Z95.5 Presence of coronary angioplasty implant and graft; Z79.02 Long term (current) use of antithrombotics/antiplatelets; Z79.899 Other long term (current) drug therapy
CPT/HCPCS: 99283; A9270-GY

== ENCOUNTER 2020-07-03 15:44 | Emergency (ER) | payer MEDICARE, OTHER ==
--- NOTE | 2020-07-03 17:29 | EDM.PDOC ---
ED HPI GENERAL MEDICAL PROBLEM - General Stated Complaint: DOUBLED UP ON MED? Time Seen by Provider: 07/03/20 17:10 Source of Information: Reports: Patient, Other (Assisted living staff) History Limitations: Reports: No Limitations - History of Present Illness INITIAL COMMENTS - FREE TEXT/NARRATIVE: Patient seemed a little confused and took all of meds for today and tomorrow. Recent leg cellulitis; has been treating for 3 weeks and improving steadily, now nearly gone he says. He feels fine and is anxious to leave. His ride is here waiting to take him for supper. Patient has not been able to be roomed yet due to heavy ER patient volume (several acute). I quickly examined him in the ER registration room before he left. - Related Data Allergies Allergy/AdvReac Type Severity Reaction Status Date / Time No Known Allergies Allergy Verified 06/12/20 18:33 Home Meds: Home Meds Finasteride 5 mg PO DAILY 12/23/14 [History] Pramipexole [Mirapex] 0.5 mg PO BEDTIME 12/23/14 [History] carvediloL [Carvedilol] 6.25 mg PO BID 12/23/14 [History] Calcium Citrate/Vitamin D2 [Kilo-Citrate Plus Vitamin D Tab] 1 each PO DAILY [History] Clopidogrel [Plavix] 75 mg PO DAILY 12/09/16 [History] Furosemide 40 mg PO DAILY 12/09/16 [History] Losartan [Cozaar] 50 mg PO DAILY 12/09/16 [History] Melatonin 5 mg PO BEDTIME PRN 12/09/16 [History] Nitroglycerin [IJP: Nitroglycerin] 0.4 mg SL TID PRN 12/09/16 [History] Pantoprazole Sodium 40 mg PO DAILY 12/09/16 [History] dilTIAZem HCl [Diltiazem 24Hr Cd] 120 mg PO DAILY 12/09/16 [History] Acetaminophen [Tylenol] 650 mg PO Q6H PRN 01/11/19 [History] Docusate Sodium [Colace] 100 mg PO DAILY PRN 01/11/19 [History] Pramipexole [Mirapex] 0.25 mg PO 1200 01/11/19 [History] Tamsulosin [Flomax] 0.8 mg PO BEDTIME 01/11/19 [History] Warfarin [Coumadin] 5 mg PO 1800 01/11/19 [History] atorvaSTATin Calcium [Atorvastatin Calcium] 40 mg PO BEDTIME 01/11/19 [History] Ferrous Sulfate 5 ml PO DAILY 08/31/19 [History] Mirtazapine [Remeron] 15 mg PO BEDTIME 08/31/19 [History] Amoxicillin/Clavulanate K [Augmentin 875-125 MG] 1 tab PO Q12H #8 tablet 09/04/19 [Rx] Magnesium Hydroxide [Milk of Magnesia] 30 ml PO DAILY PRN #300 ml 09/04/19 [Rx] cephALEXin [Cephalexin] 500 mg PO BID 4 Days #9 capsule 06/12/20 [Rx] cephALEXin [Keflex] 500 mg PO BID 4 Days cap 06/12/20 [Rx] Past Medical History HEENT History: Reports: Head, Impaired Vision Cardiovascular History: Reports: Bypass, CAD, Heart Valve Replacement, Hyperte nsion, Stents Respiratory History: Reports: Sleep Apnea Gastrointestinal History: Reports: Chronic Constipation, GERD Genitourinary History: Reports: Prostate Disorder, Other (See Below) Other Genitourinary History: chronic kidney disease Other Musculoskeletal History: current Rib fx to post thorax x 3 Hematologic History: Reports: Iron Deficiency Dermatologic History: Reports: Other (See Below) Other Dermatologic History: laceration reairs to head/face - Past Surgical History Cardiovascular Surgical History: Reports: Carotid Stents, Coronary Artery Bypas s, Valve Replacement Social & Family History - Family History Family Medical History: Noncontributory - Caffeine Use Caffeine Use: Reports: Coffee, Soda ED ROS GENERAL - Review of Systems Review Of Systems: Comprehensive ROS is negative, except as noted in HPI. ED EXAM, GENERAL - Physical Exam Exam: See Below Exam Limited By: No Limitations General Appearance: Alert, WD/WN, No Apparent Distress Eye Exam: Bilateral Eye: EOMI, Normal Inspection, PERRL Ears: Normal External Exam, Hearing Grossly Normal Nose: Normal Inspection, No Blood Throat/Mouth: Normal Inspection, Normal Lips, Normal Voice, No Airway Compromise Head: Atraumatic, Normocephalic Neck: Normal Inspection, Full Range of Motion Respiratory/Chest: No Respiratory Distress, Lungs Clear, Normal Breath Sounds, No Accessory Muscle Use Cardiovascular: Irregularly Irregular Extremities: Other (Right lower leg is very slightly erythematous and mildly swollen. This is marked improvement from several days ago per patient.) Neurological: Alert, Oriented, Normal Cognition, Normal Gait, No Motor/Sensory Deficits Psychiatric: Normal Affect, Normal Mood Skin Exam: Warm, Dry, Intact, Normal Color, No Rash Course - Vital Signs Last Recorded V/S: Last Vital Signs Temp 98.8 F 07/03/20 18:26 Pulse 74 07/03/20 18:26 Resp 18 07/03/20 18:26 BP 142/59 H 07/03/20 18: Pulse Ox 96 07/03/20 18:26 - Orders/Labs/Meds Labs: Laboratory Tests 07/03/20 07/03/20 07/03/20 Range/Units 17:20 17:39 17:39 WBC 4.93 L (5.00-10.00) 10^3/uL RBC 3.85 L (4.50-6.00) 10^6/uL Hgb 10.9 L D (13.0-17.0) g/dL Hct 34.4 L (40.0-52.0) % MCV 89.4 D (82.0-92.0) fL MCH 28.3 (27.0-31.0) pg MCHC 31.7 L (32.0-36.0) g/dL RDW 14.7 H (11.5-14.5) % Plt Count 164 (150-400) 10^3/uL MPV 11.7 H (7.4-10.4) fL Immature Gran % (Auto) 0.2 (0.0-5.0) % Neut % (Auto) 69.7 (50.0-70.0) % Lymph % (Auto) 13.0 L (20.0-40.0) % [place] % (Auto) 12.8 H (2.0-8.0) % Eos % (Auto) 4.1 H (1.0-3.0) % Baso % (Auto) 0.2 (0.0-1.0) % Neut # (Auto) 3.44 (2.50-7.00) 10^3/uL Lymph # (Auto) 0.64 L (1.00-4.00) 10^3/uL [place] # (Auto) 0.63 (0.10-0.80) 10^3/uL Eos # (Auto) 0.20 (0.10-0.30) 10^3/uL Baso # (Auto) 0.01 (0.00-0.10) 10^3/uL Immature Gran # (Auto) 0.01 (0.00-0.50) 10^3/uL PT 44.5 H (9.2-11.2) SEC INR 4.6 H* (0.9-1.1) Sodium (136-145) mmol/L Potassium (3.3-5.3) mmol/L Chloride (98-115) mmol/L Carbon Dioxide (21.0-32.0) mmol/L Anion Gap (5-15) mmol/L BUN (6-25) mg/dL Creatinine (0.51-1.17) mg/dL Est Cr Clr Drug Dosing mL/min Estimated GFR (MDRD) mL/min Glucose (75 - 99) mg/dL Calcium (8.7-10.3) mg/dL Specimen Type Urinblad Urine Color Yellow (YELLOW) Urine Appearance Clear (CLEAR) Urine pH 5.5 (5.0-9.0) Ur Specific [place] 1.020 (1.005-1.030) Urine Protein Negative (NEGATIVE) mg/dL Urine Glucose (UA) Negative (NEGATIVE) mg/dL Urine Ketones Negative (NEGATIVE) mg/dL Urine Occult Blood Negative (NEGATIVE) Urine Nitrite Negative (NEGATIVE) Urine Bilirubin Negative (NEGATIVE) Urine Urobilinogen 0.2 (0.2-1.0) E.U./dL Ur Leukocyte Esterase Negative (NEGATIVE) Urine RBC 0-5 (0-5) /HPF Urine WBC 0-5 (0-5) /HPF Ur Epithelial Cells Rare /LPF Urine Bacteria Rare (NONE TO FEW) /HPF 07/03/20 Range/Units 17:39 WBC (5.00-10.00) 10^3/uL RBC (4.50-6.00) 10^6/uL Hgb (13.0-17.0) g/dL Hct (40.0-52.0) % MCV (82.0-92.0) fL MCH (27.0-31.0) pg MCHC (32.0-36.0) g/dL RDW (11.5-14.5) % Plt Count (150-400) 10^3/uL MPV (7.4-10.4) fL Immature Gran % (Auto) (0.0-5.0) % Neut % (Auto) (50.0-70.0) % Lymph % (Auto) (20.0-40.0) % [place] % (Auto) (2.0-8.0) % Eos % (Auto) (1.0-3.0) % Baso % (Auto) (0.0-1.0) % Neut # (Auto) (2.50-7.00) 10^3/uL Lymph # (Auto) (1.00-4.00) 10^3/uL [place] # (Auto) (0.10-0.80) 10^3/uL Eos # (Auto) (0.10-0.30) 10^3/uL Baso # (Auto) (0.00-0.10) 10^3/uL Immature Gran # (Auto) (0.00-0.50) 10^3/uL PT (9.2-11.2) SEC INR (0.9-1.1) Sodium 141 (136-145) mmol/L Potassium 4.5 (3.3-5.3) mmol/L Chloride 105 (98-115) mmol/L Carbon Dioxide 26.3 (21.0-32.0) mmol/L Anion Gap 14.2 (5-15) mmol/L BUN 30 H (6-25) mg/dL Creatinine 1.28 H (0.51-1.17) mg/dL Est Cr Clr Drug Dosing 1.65 mL/min Estimated GFR (MDRD) 54 mL/min Glucose 106 H (75 - 99) mg/dL Calcium 9.0 (8.7-10.3) mg/dL Specimen Type Urine Color (YELLOW) Urine Appearance (CLEAR) Urine pH (5.0-9.0) Ur Specific [place] (1.005-1.030) Urine Protein (NEGATIVE) mg/dL Urine Glucose (UA) (NEGATIVE) mg/dL Urine Ketones (NEGATIVE) mg/dL Urine Occult Blood (NEGATIVE) Urine Nitrite (NEGATIVE) Urine Bilirubin (NEGATIVE) Urine Urobilinogen (0.2-1.0) E.U./dL Ur Leukocyte Esterase (NEGATIVE) Urine RBC (0-5) /HPF Urine WBC (0-5) /HPF Ur Epithelial Cells /LPF Urine Bacteria (NONE TO FEW) /HPF - Re-Assessments/Exams Free Text/Narrative Re-Assessment/Exam: 07/03/20 18:36 Patient wants to go and eat, wonders if we can call him with lab results. Since we still don't have any rooms for him and he seems stable I feel this is okay. 07/04/20 00:05 INR is 4.6, will call patient and advise to skip two days of warfarin then resume usual dosing and follow up with PCP. Departure - Departure Time of Disposition: 00:06 Disposition: Home, Self-Care 01 Condition: Good Clinical Impression: Supratherapeutic INR - Discharge Information Referrals: Jessica Billingsley MD [Primary Care Provider] - Additional Instructions: It is past midnight now so the nurse will call him in the morning with recommendations. Sepsis Event Note (ED) - Focused Exam Vital Signs: Vital Signs Temp Pulse Resp BP Pulse Ox 07/03/20 18:26 98.8 F 74 18 142/59 H 96
[2020-07-03 18:20] LABS: ANION GAP 14.2 mmol/L (5-15)
[2020-07-03 18:28] VITALS: BP 142/59; PULSE 74
[2020-07-04] MEDS ORDERED: Sodium Chloride 0.9% 2,000 ML ONE (05:06)
== END 2020-07-03 19:50 | disposition home or self-care (01) ==
LOC: KA.ED 15:44
DX: R79.1 Abnormal coagulation profile (principal); I25.10 Atherosclerotic heart disease of native coronary artery without angina pectoris; K21.9 Gastro-esophageal reflux disease without esophagitis; I12.9 Hypertensive chronic kidney disease with stage 1 through stage 4 chronic kidney disease, or unspecified chronic kidney disease; N18.9 Chronic kidney disease, unspecified; Z95.5 Presence of coronary angioplasty implant and graft; Z79.02 Long term (current) use of antithrombotics/antiplatelets; Z79.899 Other long term (current) drug therapy
CPT/HCPCS: 36415; 80048; 81001; 85025; 85610; 99284

== ENCOUNTER 2022-07-06 13:08 | Emergency (ER) | payer MEDICARE, OTHER ==
[2022-07-06 14:01] LABS: ANION GAP 11.1 mmol/L (5-15)
[2022-07-06 14:24] VITALS: PULSE 76
[2022-07-06 16:14] VITALS: BP 144/70
== END 2022-07-06 16:00 | disposition home or self-care (01) ==
LOC: KA.ED 13:08
DX: R44.1 Visual hallucinations (principal); I25.10 Atherosclerotic heart disease of native coronary artery without angina pectoris; I10 Essential (primary) hypertension; Z79.899 Other long term (current) drug therapy; Z79.01 Long term (current) use of anticoagulants
CPT/HCPCS: 36415; 71045; 80053; 81001; 85025; 86140; 93005; 99284; 99285

== ENCOUNTER 2023-01-21 08:00 | Emergency (ER) | payer MEDICARE, OTHER ==
[2023-01-21] MEDS ORDERED: HYDROmorphone 1 MG/ML Syringe IVPUSH ONE ×2 (09:07→13:04)
[2023-01-21 09:43] LABS: ALBUMIN 3.21 g/dL (3.40-5.00); ANION GAP 11.9 mmol/L (5-15); BASOPHILS ABSOLUTE AUTO 0.01 10^3/uL (0.00-0.10); BASOPHILS PERCENT AUTO 0.1 % (0.0-1.0); BILIRUBIN TOTAL 0.6 mg/dL (0.2-1.0); CALCIUM 8.7 mg/dL (8.7-10.3); CREATININE 1.64 mg/dL (0.51-1.17); EOSINOPHILS ABSOLUTE AUTO 0.05 10^3/uL (0.10-0.30); EOSINOPHILS PERCENT AUTO 0.4 % (1.0-3.0); EST CRCL DRUG DOSING (CG) 37.34 mL/min; HEMATOCRIT 28.4 % (40.0-52.0); HEMOGLOBIN 9.1 g/dL (13.0-17.0); IMMATURE GRAN ABSOLUTE AUTO 0.03 10^3/uL (0.00-0.50); IMMATURE GRAN PERCENT AUTO 0.2 % (0.0-5.0); LYMPHOCYTES ABSOLUTE AUTO 0.54 10^3/uL (1.00-4.00); MEAN CORPUSCULAR HEMOGLOBIN 29.6 pg (27.0-31.0); MEAN CORPUSCULAR VOLUME 92.5 fL (82.0-92.0); MEAN PLATELET VOLUME 11.8 fL (7.4-10.4); MONOCYTES ABSOLUTE AUTO 0.83 10^3/uL (0.10-0.80); MONOCYTES PERCENT AUTO 6.2 % (2.0-8.0); NEUTROPHILS ABSOLUTE AUTO 11.95 10^3/uL (2.50-7.00); NEUTROPHILS PERCENT AUTO 89.1 % (50.0-70.0); PLATELET COUNT,PLT 132 10^3/uL (150-400); POTASSIUM,K 3.9 mmol/L (3.5-5.1); PROTEIN TOTAL,TP 6.3 g/dL (6.4-8.2); RED BLOOD CELL COUNT 3.07 10^6/uL (4.50-6.00); RED CELL DISTRIBUTION WIDTH 14.4 % (11.5-14.5); WHITE BLOOD CELL COUNT,WBC 13.41 10^3/uL (5.00-10.00)
[2023-01-21 09:44] LABS: INR 3.8 (0.9-1.1); PROTHROMBIN TIME 35.9 SEC (9.2-11.2)
[2023-01-21 09:56] LABS: APPEARANCE,URINE SLIGHTLY CLOUDY (CLEAR); BILIRUBIN,URINE NEGATIVE (NEGATIVE); COLOR,URINE YELLOW (YELLOW); GLUCOSE,URINE NEGATIVE (NEGATIVE); KETONES,URINE NEGATIVE (NEGATIVE); LEUKOCYTE ESTERASE,URINE NEGATIVE (NEGATIVE); NITRITE,URINE NEGATIVE (NEGATIVE); OCCULT BLOOD,URINE LARGE (NEGATIVE); PH,URINE 5.5 (5.0-9.0); PROTEIN,URINE NEGATIVE (NEGATIVE); UROBILINOGEN,URINE 0.2 E.U./dL (0.2-1.0)
[2023-01-21 10:02] LABS: BACTERIA,URINE FEW /HPF (NONE TO FEW); EPITHELIAL CELLS,URINE RARE /LPF; RBC,URINE >100 /HPF (0-5); WBC,URINE 0-5 /HPF (0-5)
[2023-01-21 13:48] VITALS: BP 129/56; PULSE 80
[2023-01-21] MEDS ORDERED: Sodium Chloride 0.9% 1,000 ML IV ONE (14:30)
[2023-01-21] MEDS ORDERED: Sodium Chloride 0.9% 1,000 ML IV SCH (14:30)
== END 2023-01-21 14:40 ==
LOC: KA.ED 08:00
DX: S32.301A Unspecified fracture of right ilium, initial encounter for closed fracture (principal); R79.1 Abnormal coagulation profile; I25.810 Atherosclerosis of coronary artery bypass graft(s) without angina pectoris; K21.9 Gastro-esophageal reflux disease without esophagitis; I12.9 Hypertensive chronic kidney disease with stage 1 through stage 4 chronic kidney disease, or unspecified chronic kidney disease; N18.9 Chronic kidney disease, unspecified; Z79.899 Other long term (current) drug therapy; Z79.01 Long term (current) use of anticoagulants; W18.30XA Fall on same level, unspecified, initial encounter; Y92.091 Bathroom in other non-institutional residence as the place of occurrence of the external cause
CPT/HCPCS: 36415; 72100; 73560-RT; 80053; 81001; 85025; 85610; 96374; 96376; 99284; 99284-25; J1170; J7030